=== PATIENT | female | born 1950 | race Caucasian/White ===

== ENCOUNTER 2018-05-18 11:34 | Observation (INO) ==
[2018-05-18 12:45] LABS: BILIRUBIN,URINE SMALL (NEG); CLARITY,URINE CLEAR (CLEAR); GLUCOSE, URINE (UA) NEGATIVE (NEG); OCCULT BLOOD,URINE NEGATIVE (NEG); PROTEIN,URINE NEGATIVE (NEG)
[2018-05-18 12:48] LABS: COLOR,URINE AMBER (Y); URINE SAMPLE TYPE CLEAN CATCH URINE
[2018-05-18 12:55] LABS: BLOOD UREA NITROGEN 6 mg/dL (7-22); SERUM ALBUMIN 2.5 g/dL (3.5-4.8)
[2018-05-18 12:56] LABS: LIPASE 177 IU/L (23-300)
[2018-05-18 13:20] LABS: BASOPHILS # (AUTO) 0.05 10*3/UL; BASOPHILS % (AUTO) 0.9 % (0-1); EOSINOPHILS # (AUTO) 0.17 10*3/UL; EOSINOPHILS % (AUTO) 3.1 % (0-8); Hemoglobin [HGB] 8.5 g/dL (12.0-16.0); LYMPHOCYTES # (AUTO) 1.48 10*3/uL; MEAN CORPUSCULAR HEMOGLOBIN 33.2 PG (27-31); MEAN CORPUSCULAR HGB CONC 32.7 g/dL (33-37); MEAN CORPUSCULAR VOLUME 101.6 FL (81-99); MEAN PLATELET VOLUME 8.7 FL (7.4-12.2); MONOCYTES # (AUTO) 0.63 10*3/UL (0.3-0.8); MONOCYTES % (AUTO) 11.6 % (5-15); RED BLOOD COUNT 2.56 10^6/uL (4.20-5.40)
[2018-05-18 13:29] LABS: PLATELET MORPHOLOGY COMMENT NORMAL MORPHOLOGY (NORM); WBC MORPHOLOGY COMMENT NORMAL MORPHOLOGY (NORM)
[2018-05-18 13:30] LABS: RBC MORPHOLOGY COMMENT SEE COMMENTS (NORM)
[2018-05-18] MEDS ORDERED: PANTOPRAZOLE IV 40 MG VIAL IVP SCH (14:56)
[2018-05-18] MEDS ORDERED: MORPHINE SULFATE 2 MG/1 ML IVP PRN (14:56)
[2018-05-18] MEDS ORDERED: LIDOCAINE W/ SODIUM BICARB 0.5 ML SYR SUBD PRN (14:56)
--- NOTE | 2018-05-18 15:33 | DI ---
CT ABDOMEN SCAN WITH IV CONTRAST, 05/18/2018 1:57 PM : Clinical History: Ascites. Previous Exam: None at this facility. Scans are performed from the lower lung bases through the liver and kidneys with IV contrast. 75 mL o f Isovue 300 was injected IV. No oral or rectal contrast was ordered. The lung bases are clear but there is an increased number of vessels with what probably represents ca rdiomegaly. This is suggestive of CHF. There is either pleural thickening or a very small left-sided pleural effusion. The liver is small and there is suggestion of nodularity of the capsule which would indicate cirrhosis. The gallbladder is contracted and contains multiple gallstones in the range of 2 -3 cm in size. No definite evidence of acute cholecystitis is seen. There is splenomegaly without cachorro dence of varices in the left upper quadrant or in the esophagus. There is a large venous channel manohar ing from the region of the right colon and eventually joining the superior mesenteric vein as it cour ses around the right kidney consistent with a varix. Both kidneys are normal in size, shape, position and contour. There is no hydronephrosis or hydroureter. No renal or ureteral calculi are present. Th ere are no abnormal retrocrural or periaortic nodes. There is moderate ascites along with diffuse tip sarca. READIN. Ascites and anasarca. 2. Small nodular liver indicating cirrhosis with splenomegaly. There is a large varix probably arisi ng from the right colon and then joining the superior mesenteric vein CT PELVIS SCAN WITH IV CONTRAST, 05/18/2018 1:57 PM: Clinical History: See above. Previous Exam: None at this facility. Scans are performed from just superior to the umbilicus to the symphysis pubis with IV contrast. This is the same bolus of contrast used for the CT scans of the abdomen. Scans through the lower abdomen and pelvis show ascites. No intra-abdominal or pelvic mass is present . There is no adenopathy. The appendix is not identified with certainty but there is no inflammatory mass either in the area of the cecum or in the right lower quadrant. The small bowel is normal. The i leocecal valve and terminal ileum not identified with certainty. The colon is normal. There are no he rnias. The uterus and both ovaries are atrophic but normal. READIN. Ascites. 2. The cecum, appendix, ileocecal valve, and terminal ileum cannot be identified with certainty pepe use of the ascites and lack of distention of the proximal ascending colon.
[2018-05-18] MEDS ORDERED: Albumin Human Soln 25% 50 GM/200 ML IV.SOLN IV ONE (16:02)
[2018-05-18] MEDS ORDERED: LIDOCAINE HCL 2 % 10 ML JELLY URO-JECT TOPICAL PRN (16:02)
--- NOTE | 2018-05-18 16:58 | PDOC ---
HPI - History of Present Illness Date of Service: 05/08/18 Chief Complaint: abd pain History of Present Illness: This very nice 68-year-old female with a past medical history of alcohol abuse drinking about 15 beers a day and quit 1 month ago diagnosed with hepatic cirrhosis in [place] 1 month ago and has an appointment with a dairy lab technician in [place] on June 06. Tums into the ER because of some abdominal size increase and swelling. It is not painful and on CAT scan and consistent with ascites Past Medical History Medical History: Hepatic cirrhosis diagnosed in [place] previous history of alcohol abuse 15 beers a day Tobacco Use: Current Every Day Smoker In the Past 12 Months, Have Used or Abuse Any of the Following Substance: None Medication / Allergies Home Medications: Home Medications 3 Medication Instructions Recorded Confirmed Type Furosemide 40 mg PO DAILY 05/18/18 05/18/18 History Allergies/Adverse Reactions: Allergies 3 Allergy/AdvReac Type Severity Reaction Status Date / Time morphine Allergy ITCHING Verified 05/18/18 15:32 Review of Systems - Review of Systems All Systems: Reviewed & No Additional Complaints Except as Stated - Respiratory Respiratory: DENIES: Negative System Review, Cough, Sputum, Dyspnea At Rest, Dyspnea with Exertion, Pleuritic Pain, Hemoptysis, Wheezing, Other, See HPI - Cardiovascular Cardiovascular: DENIES: Negative System Review, Chest Pain, Edema, Syncope, Palpitations, Orthopnea, Paroxysmal Nocturnal Dyspnea, Other, See HPI - Gastrointestinal Gastrointestinal / Abdominal: REPORTS: Nausea, Bloating. DENIES: Abdominal Pain , Bloody Stool, Heartburn, Regurgitation - Neurological Neurologic: DENIES: Negative System Review, Headache, Numbness/Paresthesia, Tremors, Weakness, Seizures, Head Trauma, LOC, Dizziness, Confusion, Memory Loss , Difficulty Walking, Incoordination, Other, See HPI Exam - Vitals Vital Signs: Vital Signs Temperature 97.6 F Temperature Source Tympanic Pulse Rate [Pulse Oximeter] 82 Respiratory Rate 20 Blood Pressure [Left Arm] 115/62 Pulse Ox 97 Oxygen Delivery Method Room Air Height 5 ft 4 in Weight 177 lb 1.6 oz - General General Appearance: No Acute Distress, Cooperative - Head Head Exam: Normal Inspection, Normocephalic, Atraumatic - Eye Eye Exam: POSITIVE: Normal Appearance, PERRL, EOMI, No Scleral Icterus - Respiratory Respiratory Exam: POSITIVE: Clear to Auscultation - Bilaterally, Breathing Non Labored, Normal To Percussion, Normal to Percussion and Palpation - Cardiovascular Cardiovascular Exam: POSITIVE: RRR, No Murmur, No Clicks, No Gallops, No Rubs, PMI Non-Displaced - GI/Abdominal GI/Abdominal Exam: POSITIVE: Hypoactive Bowel Sounds, Positive for Ascites. NEGATIVE: Rebound - Extremities Extremities Exam: POSITIVE: No Clubbing Present, No Edema Present, No Cyanosis Present Results - Labs CBC and BMP: 05/18/18 12:33 05/18/18 12:33 Assessment and Plan - Patient Problems (1) Ascites due to alcoholic cirrhosis Current Visit: Yes Status: Acute Comment: We will order coags, start Aldactone and start IV Lasix insert Perez and albumin infusion I have also ordered a CT scan abdomen and pelvis Code(s): K70.31 - Alcoholic cirrhosis of liver with ascites (2) Anemia Current Visit: Yes Status: Acute Comment: Patient has never been seen here so I cannot look back at the hemoglobin Code(s): D64.9 - Anemia, unspecified (3) Abnormal albumin Current Visit: Yes Status: Acute Code(s): R77.0 - Abnormality of albumin (4) Serum albumin decreased Current Visit: Yes Status: Acute Code(s): E88.09 - Other disorders of plasma -protein metabolism, not elsewhere classified (5) Bilirubinemia Current Visit: Yes Status: Acute Code(s): E80.6 - Other disorders of bilirubin metabolism
[2018-05-18] MEDS ORDERED: Spironolactone Tab 25 MG TAB PO SCH (17:00)
[2018-05-18] MEDS ORDERED: FUROSEMIDE 10 MG/1 ML - 4 ML IVP ONE (19:00)
[2018-05-18] MEDS ORDERED: POTASSIUM CHLORIDE 20 MEQ TAB PO SCH (21:00)
[2018-05-18] MEDS ORDERED: Magnesium Sulfate 2gm (Premix) 2 GM/50 ML BAG IV ONE (22:21)
--- NOTE | 2018-05-19 02:54 | PDOC ---
General Adult HPI - General Chief Complaint: Abdomen Pain Stated Complaint: abd distension Date Seen by Provider: 05/18/18 Time Seen by Provider: 12:45 Source: POSITIVE: Patient, Other (Sister) Exam Limitations: POSITIVE: No limitations Nurse's Notes Reviewed & Considered: Yes - History of Present Illness Initial Comment: The patient is a 68-year-old female. She is brought to the emergency room by her sister. Patient states that she has had some "abdominal swelling" since January. She states that over the last couple days her swelling is increased and has become quite uncomfortable. She has a past history of alcohol abuse and states that she was drinking about 15 beers per day up until about a month ago. She states she's not had any alcohol since. She states she was seen for similar symptoms in [place] approximately one month ago but she states her abdominal swelling was not nearly as prominent or uncomfortable as it is presently. She states that she was started on Lasix during that visit. She states she was diagnosed with hepatic cirrhosis. She states she hasn't appointment with a physician pediatrician in [place] on 06 June. Have you received a tetanus shot in the past 10 years?: Unknown Body Location Affected: REPORTS: Abdomen Timing: REPORTS: Gradual, Getting Worse Duration: >24 hours (Progressive abdominal swelling for 4 months) Quality: REPORTS: Fullness, Pressure Context: REPORTS: Other (As above) Modifying Factors: improves with: Nothing Similar Symptoms Previously: Yes (as above) Recent Care Received: REPORTS: Recently Seen, Treated by MD (As above) Any Prior Injuries Related to Current Complaint?: No - Patient Home Medications Home Medications: Home Medications Furosemide 40 mg PO DAILY 05/18/18 - Patient Allergies Allergies/Adverse Reactions: Allergies 3 Allergy/AdvReac Type Severity Reaction Status Date / Time morphine Allergy ITCHING Verified 05/18/18 15:32 Past Medical History - heen HEENT History: Denies History Cardiovascular History: Denies History Respiratory History: Denies History Gastrointestinal History: Other (please comment) Additional Gastrointestinal History: cirrhosis Genitourinary History: Denies History Endocrine History: Denies History Musculoskeletal History: Denies History Prosthesis or Implant: No Neurological History: Denies History Blood Disorders: Denies History Psychiatric History: Denies History History of Sexually Transmitted Diseases: No Female Reproductive History: Denies History LMP: years Obstetrical History: Denies History Cancer History: Denies History In Past Year Been Physically Harmed or Verbally Threatened: No History of MDRO: No History of Other Communicable Diseases: No Tobacco Use: Current Every Day Smoker In the Past 12 Months, Have Used or Abuse Any Substance: None Past Medical History Reviewed: Reviewed - No Changes ROS - Limitations ROS Limitations: No Limitations Constitution: REPORTS: Weakness, Other (Fatigue) Cardiovascular: REPORTS: Denies Cardiac Symptoms Respiratory: REPORTS: Denies Resp Symptoms Neurological: REPORTS: Denies Neuro Symptoms Gastrointestinal: REPORTS: Abdominal Pain (Abdominal distention and swelling) Endocrine: REPORTS: Fatigue Musculoskeletal: REPORTS: Denies MS Symptoms Genitourinary: REPORTS: Denies Symptoms Eyes: REPORTS: Denies Symptoms ENT: REPORTS: Denies Symptoms Skin: REPORTS: Other (Jaundice and icterus) Lympathic: REPORTS: Denies Lympathic Symptoms Immunologic: POSITIVE: Denies Symptoms Psychiatric: POSITIVE: Denies Psych Symptoms General Adult Exam - General Appearance General Appearance: POSITIVE: Alert, Cooperative, No Acute Distress, No Evidence of Trauma - HEENT HEENT: POSITIVE: Head Inspection Nml, Eyes Inspection Nml, Ears Inspection Nml, Nose Inspection Nml, Oral/Dental Inspect. Nml, Pharynx Inspect. Nml, PERRL, EOMI - Pupils Pupil Size: 3 mm: Bilateral (PERRLA) - Neck Neck: POSITIVE: Normal Inspection, Thyroid Normal - Respiratory Respiratory: POSITIVE: No Respiratory Distress, Breath Sounds Normal, Chest Non- Tender - Cardiovascular Cardiovascular: POSITIVE: Regular Rate & Rhythm, No Murmur, No Gallop, PMI Normal Peripheral Pulses: Radial (R): 2+, Radial (L): 2+ - Abdomen Abdomen: Soft: (All Quadrants), Normal Bowel Sounds: (All Quadrants), No Splenomegaly: (All Quadrants), No Hepatomegaly: (All Quadrants), No Guarding: ( All Quadrants), No Rebound: (All Quadrants), No Palpable Pulse: (All Quadrants) , No Palpabale Mass: (All Quadrants), No Rigidity: (All Quadrants), Tenderness Noted: (All Quadrants), Distention: (All Quadrants) Additional Abdominal Details: Abdominal examination shows bowel sounds to be active. Patient does have ascites in the abdomen is distended and mildly tender diffusely. No masses, organomegaly or rebound. - Back Back: POSITIVE: Normal Inspection - Skin Skin: POSITIVE: Other (Jaundice) - Extremities Extremity: Non-Tender: (All Extremities), Normal ROM: (All Extremities), Normal Inspection: (All Extremities), Edema / Swelling: (RLE), (LLE) - Neurological / Psychological Neurological: POSITIVE: Affect Apporpriate, Oriented X3, lighting director Normal As Tested, Motor Normal, Sensation Normal Images - Complete Complete: 1 - Abdominal distention 2 - Pedal edema General Adult Progress - Results Reviewed by me Xrays/CTs/US Reviewed by me: Yes Discussed with Radiologist: Yes Radiology Findings: Ascites; liver small and nodular compatible with his cirrhosis. Lab Results:: Laboratory Results 3 05/18/18 05/18/18 05/18/18 12:23 12:33 12:33 WBC 5.44 RBC 2.56 L Hgb 8.5 L Hct 26.0 L MCV 101.6 H MCH 33.2 H MCHC 32.7 L RDW Std Deviation 73.2 H RDW Coeff of Raoul 20.8 H Plt Count 36 L MPV 8.7 Immature Gran % (Auto) 0.2 Neut % (Auto) 57.0 Lymph % (Auto) 27.2 Conway % (Auto) 11.6 Eos % (Auto) 3.1 Baso % (Auto) 0.9 Immature Gran # (Auto) 0.01 Neut # (Auto) 3.10 Lymph # (Auto) 1.48 Conway # (Auto) 0.63 Eos # (Auto) 0.17 Baso # (Auto) 0.05 WBC Morphology Comment Normal morphology Plt Morphology Comment Normal morphology RBC Morph Comment See comments Sodium 129 L Potassium 3.2 L Chloride 102 Carbon Dioxide 25 Anion Gap 2 L BUN 6 L Creatinine 0.5 Estimated GFR > 60 BUN/Creatinine Ratio 12.00 Glucose 100 Calculated Osmolality 265.0 L Calcium 7.5 L Magnesium 1.5 L Total Bilirubin 7.5 H AST 51 H ALT 42 Alkaline Phosphatase 144 H Ammonia Total Protein 8.0 Albumin 2.5 L Globulin 5.5 H Albumin/Globulin Ratio 0.40 L Amylase 87 Lipase 177 Ur Collection Type Urine Color Urine Clarity Urine pH Ur Specific [place] Urine Protein Urine Glucose (UA) Urine Ketones Urine Occult Blood Urine Nitrate Urine Bilirubin Urine Urobilinogen Ur Leukocyte Esterase Ur Culture Indicated? Serum Alcohol 3 05/18/18 05/18/18 05/18/18 12:33 12:39 13:00 WBC RBC Hgb Hct MCV MCH MCHC RDW Std Deviation RDW Coeff of Raoul Plt Count MPV Immature Gran % (Auto) Neut % (Auto) Lymph % (Auto) Conway % (Auto) Eos % (Auto) Baso % (Auto) Immature Gran # (Auto) Neut # (Auto) Lymph # (Auto) Conway # (Auto) Eos # (Auto) Baso # (Auto) WBC Morphology Comment Plt Morphology Comment RBC Morph Comment Sodium Potassium Chloride Carbon Dioxide Anion Gap BUN Creatinine Estimated GFR BUN/Creatinine Ratio Glucose Calculated Osmolality Calcium Magnesium Total Bilirubin AST ALT Alkaline Phosphatase Ammonia < 9 L Total Protein Albumin Globulin Albumin/Globulin Ratio Amylase Lipase Ur Collection Type Clean catch urine Urine Color Anabel A Urine Clarity Clear Urine pH 6.0 Ur Specific [place] <=1.005 Urine Protein Negative Urine Glucose (UA) Negative Urine Ketones Negative Urine Occult Blood Negative Urine Nitrate Negative Urine Bilirubin Small Urine Urobilinogen 1.0 Ur Leukocyte Esterase Negative Ur Culture Indicated? Culture not set Serum Alcohol < 10 CBC and BMP: 05/18/18 12:33 05/18/18 12:33 - Patient's Progress Pain Medication Addressed: POSITIVE: Not Applicable School/Work Release Addressed: POSITIVE: Not Applicable Re-Examine Time: 13:55 Re-Examine Comment: Diagnosis of hepatic cirrhosis and anasarca discussed with patient. Patient also has anemia and hypoproteinemia and a low platelet count. Hyperbilirubinemia. Status: POSITIVE: Unchanged, Re-Examined Antibiotics Given: No - Consult Consult (If Yes, Name of Consulting MD & Time Called): Yes (Dr. Mcdonald, hospitalist, [id number]) Consulting MD will see pt:: POSITIVE: [facility] [place] Admit Counseled: POSITIVE: Patient, Family (Sister), RE: Lab Results, RE: Radiology Results, RE: DX, RE: Need for F/U Patient Care Time - Estimated PCT Patient Care Time (In Minutes): 50 Vital Signs - Recent Vital Signs Vital Signs: Vital Signs (Last 8 hours) Temp Pulse Resp BP Pulse Ox 05/19/18 00:28 98.5 F 100 20 112/62 93 05/18/18 19:16 97.9 F 88 21 111/60 95 - VS Reviewed Vital Signs Reviewed: Yes Discharge Clinical Impression: Ascites, Hepatic cirrhosis, Anemia, Thrombocytopenia, Hypoproteinemia, Hyperbilirubinemia Discharge Disposition: Admit to Inpatient Condition: Fair Date Decision to Admit to Inpatient: 05/19/18 Time Decision to Admit to Inpatient: 13:55
[2018-05-19 04:57] LABS: BASOPHILS # (AUTO) 0.03 10*3/UL; BASOPHILS % (AUTO) 0.7 % (0-1); EOSINOPHILS # (AUTO) 0.18 10*3/UL; LYMPHOCYTES # (AUTO) 1.41 10*3/uL; MEAN CORPUSCULAR HEMOGLOBIN 32.9 PG (27-31); MEAN CORPUSCULAR HGB CONC 31.8 g/dL (33-37); MEAN CORPUSCULAR VOLUME 103.3 FL (81-99); MEAN PLATELET VOLUME 9.1 FL (7.4-12.2); MONOCYTES % (AUTO) 13.4 % (5-15); NEUTROPHILS # (AUTO) 2.27 10*3/UL; NEUTROPHILS % (AUTO) 50.5 % (50-80); RED BLOOD COUNT 2.13 10^6/uL (4.20-5.40)
[2018-05-19] MEDS ORDERED: Albumin Human Soln 25% 50 GM/200 ML IV.SOLN IV ONE (05:00)
--- NOTE | 2018-05-19 05:08 | PDOC(PROG) ---
Objective : Data - Labs CBC and BMP: 05/18/18 12:33 05/18/18 12:33 Objective : Exam - General General Appearance: Cooperative - Respiratory Respiratory Exam: Clear to Auscultation - Bilaterally, Breathing Non Labored, Normal To Percussion, Normal to Percussion and Palpation - Cardiovascular Cardiovascular Exam: RRR, No Murmur, No Clicks, No Gallops, No Rubs, PMI Non- Displaced - GI/Abdominal GI/Abdominal Exam: Non Tender, Positive for Ascites Assessment and Plan - Patient Problems (1) Ascites due to alcoholic cirrhosis Current Visit: Yes Status: Acute Comment: I will start Lasix drip this morning we'll more infusion of albumin continue Aldactone we will see if we can get some of her ascitic fluid out with medication patient really does not want to be tapped reviewed CT scan with radiology about 3 L present Code(s): K70.31 - Alcoholic cirrhosis of liver with ascites (2) Anemia Current Visit: Yes Status: Acute Code(s): D64.9 - Anemia, unspecified (3) Abnormal albumin Current Visit: Yes Status: Acute Code(s): R77.0 - Abnormality of albumin (4) Serum albumin decreased Current Visit: Yes Status: Acute Code(s): E88.09 - Other disorders of plasma -protein metabolism, not elsewhere classified (5) Bilirubinemia Current Visit: Yes Status: Acute Code(s): E80.6 - Other disorders of bilirubin metabolism
[2018-05-19 05:10] LABS: BLOOD UREA NITROGEN 5 mg/dL (7-22); SERUM ALBUMIN 2.8 g/dL (3.5-4.8)
[2018-05-19 05:19] LABS: PLATELET MORPHOLOGY COMMENT SEE COMMENTS (NORM); WBC MORPHOLOGY COMMENT NORMAL MORPHOLOGY (NORM)
[2018-05-19 05:20] LABS: RBC MORPHOLOGY COMMENT SEE COMMENTS (NORM)
[2018-05-19] MEDS ORDERED: PHYTONADIONE 10 MG/1 ML AMPULE PO ONE (05:33)
[2018-05-19 06:32] VITALS: BP 106/51; RESP 17; TEMP 98.2; O2SAT 90
[2018-05-19] MEDS ORDERED: FUROSEMIDE 10 MG/1 ML - 4 ML IVP SCH (07:00)
--- NOTE | 2018-05-19 08:16 | DCSUMMARY ---
Hospitalization Summary Hospital Course: Final Discharge Diagnosis: Current Visit Problems Problem Status Onset Code Ascites due to alcoholic cirrhosis Acute K70.31 Anemia Acute D64.9 Abnormal albumin Acute R77.0 Serum albumin decreased Acute E88.09 Bilirubinemia Acute E80.6 Ascites Acute R18.8 Hepatic cirrhosis Acute K74.60 Thrombocytopenia Acute D69.6 Hypoproteinemia Acute E77.8 Diagnostic Data, Laboratory Data, and Procedures of Signifigance: Laboratory Results 05/18/18 05/18/18 05/18/18 Range/Units 12:23 12:33 12:33 WBC 5.44 (4.8-10.8) 10^3/uL RBC 2.56 L (4.20-5.40) 10^6/uL Hgb 8.5 L (12.0-16.0) g/dL Hct 26.0 L (37.0-47.0) % MCV 101.6 H (81-99) FL MCH 33.2 H (27-31) PG MCHC 32.7 L (33-37) g/dL RDW Std Deviation 73.2 H (39-50) fL RDW Coeff of Raoul 20.8 H (11.5-14.5) % Plt Count 36 L (140-350) 10*3/uL MPV 8.7 (7.4-12.2) FL Immature Gran % (Auto) 0.2 (0-5) % Neut % (Auto) 57.0 (50-80) % Lymph % (Auto) 27.2 (10-50) % [place] % (Auto) 11.6 (5-15) % Eos % (Auto) 3.1 (0-8) % Baso % (Auto) 0.9 (0-1) % Immature Gran # (Auto) 0.01 10*3/UL Neut # (Auto) 3.10 10*3/UL Lymph # (Auto) 1.48 10*3/uL [place] # (Auto) 0.63 (0.3-0.8) 10*3/UL Eos # (Auto) 0.17 10*3/UL Baso # (Auto) 0.05 10*3/UL WBC Morphology Comment Normal morphology (NORM) Plt Morphology Comment Normal morphology (NORM) RBC Morph Comment See comments (NORM) PT (9.7-11.4) secs INR (0.00-5.90) N/A Sodium 129 L (135-145) meq/L Potassium 3.2 L (3.8-5.2) meq/L Chloride 102 (98-112) meq/L Carbon Dioxide 25 (23-33) meq/L Anion Gap 2 L (5-20) BUN 6 L (7-22) mg/dL Creatinine 0.5 (0.50-1.20) mg/dL Estimated GFR > 60 (>60 ml/min/1.73m(2)) BUN/Creatinine Ratio 12.00 (6-20) Glucose 100 (78-110) mg/dL Calculated Osmolality 265.0 L (267-292) mOsm/kg Calcium 7.5 L (8.7-10.7) mg/dL Magnesium 1.5 L (1.6-2.4) mg/dL Total Bilirubin 7.5 H (0.3-1.2) mg/dL AST 51 H (8-39) IU/L ALT 42 (9-52) IU/L Alkaline Phosphatase 144 H (38-126) IU/L Ammonia (9.0-33.0) UMOL/L Total Protein 8.0 (6.1-8.0) g/dL Albumin 2.5 L (3.5-4.8) g/dL Globulin 5.5 H (2.50-4.10) g/dL Albumin/Globulin Ratio 0.40 L (1.3-2.0) mg/g Amylase 87 (30-110) U/L Lipase 177 (23-300) IU/L Ur Collection Type Urine Color (Y) Urine Clarity (CLEAR) Urine pH (5.0-8.5) Ur Specific [place] (1.005-1.030) Urine Protein (NEG) mg/dl Urine Glucose (UA) (NEG) mg/dL Urine Ketones (NEG) Urine Occult Blood (NEG) Urine Nitrate (NEG) Urine Bilirubin (NEG) Urine Urobilinogen (0.2) EU/dL Ur Leukocyte Esterase (NEG) Ur Culture Indicated? Serum Alcohol (0-10) mg/dL Blood Type Antibody Screen 05/18/18 05/18/18 05/18/18 Range/Units 12:33 12:39 13:00 WBC (4.8-10.8) 10^3/uL RBC (4.20-5.40) 10^6/uL Hgb (12.0-16.0) g/dL Hct (37.0-47.0) % MCV (81-99) FL MCH (27-31) PG MCHC (33-37) g/dL RDW Std Deviation (39-50) fL RDW Coeff of Raoul (11.5-14.5) % Plt Count (140-350) 10*3/uL MPV (7.4-12.2) FL Immature Gran % (Auto) (0-5) % Neut % (Auto) (50-80) % Lymph % (Auto) (10-50) % [place] % (Auto) (5-15) % Eos % (Auto) (0-8) % Baso % (Auto) (0-1) % Immature Gran # (Auto) 10*3/UL Neut # (Auto) 10*3/UL Lymph # (Auto) 10*3/uL [place] # (Auto) (0.3-0.8) 10*3/UL Eos # (Auto) 10*3/UL Baso # (Auto) 10*3/UL WBC Morphology Comment (NORM) Plt Morphology Comment (NORM) RBC Morph Comment (NORM) PT (9.7-11.4) secs INR (0.00-5.90) N/A Sodium (135-145) meq/L Potassium (3.8-5.2) meq/L Chloride (98-112) meq/L Carbon Dioxide (23-33) meq/L Anion Gap (5-20) BUN (7-22) mg/dL Creatinine (0.50-1.20) mg/dL Estimated GFR (>60 ml/min/1.73m(2)) BUN/Creatinine Ratio (6-20) Glucose (78-110) mg/dL Calculated Osmolality (267-292) mOsm/kg Calcium (8.7-10.7) mg/dL Magnesium (1.6-2.4) mg/dL Total Bilirubin (0.3-1.2) mg/dL AST (8-39) IU/L ALT (9-52) IU/L Alkaline Phosphatase (38-126) IU/L Ammonia < 9 L (9.0-33.0) UMOL/L Total Protein (6.1-8.0) g/dL Albumin (3.5-4.8) g/dL Globulin (2.50-4.10) g/dL Albumin/Globulin Ratio (1.3-2.0) mg/g Amylase (30-110) U/L Lipase (23-300) IU/L Ur Collection Type Clean catch urine Urine Color Anabel A (Y) Urine Clarity Clear (CLEAR) Urine pH 6.0 (5.0-8.5) Ur Specific [place] <=1.005 (1.005-1.030) Urine Protein Negative (NEG) mg/dl Urine Glucose (UA) Negative (NEG) mg/dL Urine Ketones Negative (NEG) Urine Occult Blood Negative (NEG) Urine Nitrate Negative (NEG) Urine Bilirubin Small (NEG) Urine Urobilinogen 1.0 (0.2) EU/dL Ur Leukocyte Esterase Negative (NEG) Ur Culture Indicated? Culture not set Serum Alcohol < 10 (0-10) mg/dL Blood Type Antibody Screen 05/19/18 05/19/18 05/19/18 Range/Units 04:23 04:23 04:23 WBC 4.49 L (4.8-10.8) 10^3/uL RBC 2.13 L (4.20-5.40) 10^6/uL Hgb 7.0 L (12.0-16.0) g/dL Hct 22.0 L (37.0-47.0) % MCV 103.3 H (81-99) FL MCH 32.9 H (27-31) PG MCHC 31.8 L (33-37) g/dL RDW Std Deviation 73.7 H (39-50) fL RDW Coeff of Raoul 21.1 H (11.5-14.5) % Plt Count 80 L (140-350) 10*3/uL MPV 9.1 (7.4-12.2) FL Immature Gran % (Auto) 0 (0-5) % Neut % (Auto) 50.5 (50-80) % Lymph % (Auto) 31.4 (10-50) % [place] % (Auto) 13.4 (5-15) % Eos % (Auto) 4.0 (0-8) % Baso % (Auto) 0.7 (0-1) % Immature Gran # (Auto) 0 10*3/UL Neut # (Auto) 2.27 10*3/UL Lymph # (Auto) 1.41 10*3/uL [place] # (Auto) 0.60 (0.3-0.8) 10*3/UL Eos # (Auto) 0.18 10*3/UL Baso # (Auto) 0.03 10*3/UL WBC Morphology Comment Normal morphology (NORM) Plt Morphology Comment See comments (NORM) RBC Morph Comment See comments (NORM) PT 18.5 H (9.7-11.4) secs INR 1.79 (0.00-5.90) N/A Sodium 133 L (135-145) meq/L Potassium 3.5 L (3.8-5.2) meq/L Chloride 105 (98-112) meq/L Carbon Dioxide 27 (23-33) meq/L Anion Gap 1 L (5-20) BUN 5 L (7-22) mg/dL Creatinine 0.4 L (0.50-1.20) mg/dL Estimated GFR > 60 (>60 ml/min/1.73m(2)) BUN/Creatinine Ratio 12.50 (6-20) Glucose 104 (78-110) mg/dL Calculated Osmolality 272.0 (267-292) mOsm/kg Calcium 7.9 L (8.7-10.7) mg/dL Magnesium (1.6-2.4) mg/dL Total Bilirubin 6.1 H (0.3-1.2) mg/dL AST 45 H (8-39) IU/L ALT 40 (9-52) IU/L Alkaline Phosphatase 122 (38-126) IU/L Ammonia (9.0-33.0) UMOL/L Total Protein 7.5 (6.1-8.0) g/dL Albumin 2.8 L (3.5-4.8) g/dL Globulin 4.7 H (2.50-4.10) g/dL Albumin/Globulin Ratio 0.50 L (1.3-2.0) mg/g Amylase (30-110) U/L Lipase (23-300) IU/L Ur Collection Type Urine Color (Y) Urine Clarity (CLEAR) Urine pH (5.0-8.5) Ur Specific [place] (1.005-1.030) Urine Protein (NEG) mg/dl Urine Glucose (UA) (NEG) mg/dL Urine Ketones (NEG) Urine Occult Blood (NEG) Urine Nitrate (NEG) Urine Bilirubin (NEG) Urine Urobilinogen (0.2) EU/dL Ur Leukocyte Esterase (NEG) Ur Culture Indicated? Serum Alcohol (0-10) mg/dL Blood Type Antibody Screen 05/19/18 05/19/18 Range/Units 04:23 05:55 WBC (4.8-10.8) 10^3/uL RBC (4.20-5.40) 10^6/uL Hgb (12.0-16.0) g/dL Hct (37.0-47.0) % MCV (81-99) FL MCH (27-31) PG MCHC (33-37) g/dL RDW Std Deviation (39-50) fL RDW Coeff of Raoul (11.5-14.5) % Plt Count (140-350) 10*3/uL MPV (7.4-12.2) FL Immature Gran % (Auto) (0-5) % Neut % (Auto) (50-80) % Lymph % (Auto) (10-50) % [place] % (Auto) (5-15) % Eos % (Auto) (0-8) % Baso % (Auto) (0-1) % Immature Gran # (Auto) 10*3/UL Neut # (Auto) 10*3/UL Lymph # (Auto) 10*3/uL [place] # (Auto) (0.3-0.8) 10*3/UL Eos # (Auto) 10*3/UL Baso # (Auto) 10*3/UL WBC Morphology Comment (NORM) Plt Morphology Comment (NORM) RBC Morph Comment (NORM) PT (9.7-11.4) secs INR (0.00-5.90) N/A Sodium (135-145) meq/L Potassium (3.8-5.2) meq/L Chloride (98-112) meq/L Carbon Dioxide (23-33) meq/L Anion Gap (5-20) BUN (7-22) mg/dL Creatinine (0.50-1.20) mg/dL Estimated GFR (>60 ml/min/1.73m(2)) BUN/Creatinine Ratio (6-20) Glucose (78-110) mg/dL Calculated Osmolality (267-292) mOsm/kg Calcium (8.7-10.7) mg/dL Magnesium 1.9 (1.6-2.4) mg/dL Total Bilirubin (0.3-1.2) mg/dL AST (8-39) IU/L ALT (9-52) IU/L Alkaline Phosphatase (38-126) IU/L Ammonia (9.0-33.0) UMOL/L Total Protein (6.1-8.0) g/dL Albumin (3.5-4.8) g/dL Globulin (2.50-4.10) g/dL Albumin/Globulin Ratio (1.3-2.0) mg/g Amylase (30-110) U/L Lipase (23-300) IU/L Ur Collection Type Urine Color (Y) Urine Clarity (CLEAR) Urine pH (5.0-8.5) Ur Specific [place] (1.005-1.030) Urine Protein (NEG) mg/dl Urine Glucose (UA) (NEG) mg/dL Urine Ketones (NEG) Urine Occult Blood (NEG) Urine Nitrate (NEG) Urine Bilirubin (NEG) Urine Urobilinogen (0.2) EU/dL Ur Leukocyte Esterase (NEG) Ur Culture Indicated? Serum Alcohol (0-10) mg/dL Blood Type O NEGATIVE Antibody Screen Negative History and Physical pertinent to Admission: Course of Hospitalization: This is a very nice 68-year-old female with past medical history of alcohol abuse stopped drinking 1 month ago. She [place] [facility] [place] was given Lasix and discharged an [facility] was [facility] for [facility]. Presents to the ER and [facility] [place] with a some abdominal tightness that she describes it CT scan and physical exam revealed the ascites and anasarca. Albumin was close to 0. She was given an albumin infusion Lasix and Aldactone. Perez was inserted for accurate output. INR 1.97 she has a child Osborn classification C with 11 points which gives her 45% survival at one year and a meld score of 22. I discussed the case with Dr. Samir Quiroz steam tender and Dr. Crowe which graciously accepted the patient for further evaluation and workup for possible EGD to look for varices, paracenteses possible TIPS procedure or shot and further management of her disease not having interventional radiology and GI here patient will be transferred [place] [facility] [place] I did speak with the patient which agrees as well and nursing. Her hemoglobin today is 7 she is hemodynamically stable and the ER physician is aware of this as well no transfusion initiated here. Denies chest pain or shortness of breath. Also she was given 2 g of magnesium, because it was 41.5 her potassium was also replaced and albumin infusion. On the date of discharge, the patient was examined: Gen.: [No acute distress, alert, nontoxic] Heart: [Regular rate and rhythm, no murmurs, clicks, gallops, or rubs] Lungs: [Clear to auscultation bilaterally, breathing is nonlabored] Abdomen/GI: Positive for cyanosis and anasarca Musculoskeletal/extremities: [No clubbing, cyanosis, positive for generalized edema] Vitals reviewed and are listed below Vital Signs (24 hrs) Temp Pulse Resp BP Pulse Ox 05/19/18 06:31 98.2 F 95 17 106/51 90 05/19/18 04:39 98.9 F 103 H 20 102/60 91 05/19/18 00:28 98.5 F 100 20 112/62 93 05/18/18 19:16 97.9 F 88 21 111/60 95 05/18/18 17:00 97.5 F 88 20 117/65 95 05/18/18 15:36 97.6 F 82 20 115/62 05/18/18 15:06 82 20 05/18/18 14:56 97 05/18/18 12:03 97.2 F 97 18 131/61 95 Assessment and Plan: 1. As per discharge assessments above 2. Disposition: 3. Condition on discharge, stable and improved. 4. Diet: regular diet 5. Activities: resume normal activities 6. Follow-Up: 1. [PCP] 2. 7. Medications at the Time of Discharge: Home Medications 3 Medication Instructions Recorded Confirmed Type Furosemide 40 mg PO DAILY 05/18/18 05/18/18 History Intake and Output (24hr x 4 totals) 05/16/18 05/17/18 05/18/18 05/19/18 11:59 11:59 11:59 11:59 Intake Total 1520 / 1520 Output Total 2125 / 2125 Balance -605 / -605 8. Time, care, counseling and coordination of care for this discharge is greater than 30 minutes. Exam - Vitals Vital Signs: Vital Signs Temperature 98.2 F Temperature Source Temporal Artery Scan Pulse Rate [Pulse Oximeter] 95 Respiratory Rate 17 Blood Pressure [Left Arm] 106/51 Pulse Ox 90 Oxygen Delivery Method Room Air Height 5 ft 4 in Weight 177 lb 1.6 oz Patient Problems - Patient Problem List (1) Ascites due to alcoholic cirrhosis Current Visit: Yes Status: Acute Code(s): K70.31 - Alcoholic cirrhosis of liver with ascites Category: Medical (2) Anemia Current Visit: Yes Status: Acute Code(s): D64.9 - Anemia, unspecified Category: Medical (3) Abnormal albumin Current Visit: Yes Status: Acute Code(s): R77.0 - Abnormality of albumin Category: Medical (4) Serum albumin decreased Current Visit: Yes Status: Acute Code(s): E88.09 - Other disorders of plasma -protein metabolism, not elsewhere classified Category: Medical (5) Bilirubinemia Current Visit: Yes Status: Acute Code(s): E80.6 - Other disorders of bilirubin metabolism Category: Medical
== END 2018-05-19 08:36 | disposition short-term general hospital (02) ==
LOC: ER 11:34 → MED/SURG 11:34
PROVIDERS: ADMIT Internal Medicine; ATTEND Internal Medicine

== ENCOUNTER 2018-07-21 14:10 | Inpatient (IN) ==
[2018-07-21] MEDS ORDERED: ONDANSETRON 4 MG/2 ML VIAL IVP ONE (14:20)
[2018-07-21] MEDS ORDERED: Sodium Chloride 0.9% 1,000 ML PRIMARY IV ONE (14:20)
--- NOTE | 2018-07-21 14:23 | PDOC ---
Altered Mental Status HPI - General Chief Complaint: Altered Mental Status Stated Complaint: MENTAL STATUS CHANGES Date Seen by Provider: 07/21/18 Time Seen by Provider: 14:10 Source: POSITIVE: Patient Exam Limitations: POSITIVE: Clinical condition Nurse's Notes Reviewed & Considered: Yes - History of Present Illness Initial Comments: This is a well-developed, well-nourished, jaundiced, 68-year-old female with an altered mental status. In via EMS when she was found wandering in the hallway of the [facility] where she lives noted and defecating in the hallway. Last known normal is uncertain and appears to be days. Patient answers all questions the same with may be and continues to give numbers as answers. No lateralizing signs are noted. Further review of systems is unavailable because the patient's altered mental status. Patient is a known alcoholic with history of heavy alcohol consumption. Body Location Affected: REPORTS: Head Timing: REPORTS: Unknown Duration: Unknown Severity: Severe Quality: DENIES: Aching, Burning, Cramping, Dullness, Fullness, "Pain", Sharpness, Stabbing, Throbbing, Tenderness, Itching, Pressure, Other Character of AMS: REPORTS: Disoriented, Confused Context: REPORTS: Other (Found wandering naked and defecating in the hallway of the [facility] home, defecating in the hallway, and giving nonsensical verbal responses.) FSBS ACCOUNT DEVELOPMENT SPECIALIST (Result in comment): No New Medications (if yes, list): No Patient Normals: REPORTS: Alert, Oriented x3 Similar Symptoms Previously: No Recent Care Received: REPORTS: Denies Any Prior Injuries Related to Current Complaint?: No - Patient Home Medications Home Medications: Home Medications pantoprazole 40 mg tablet,delayed release 40 mg PO QDAY #90 tab 06/09/18 pentoxifylline ER 400 mg tablet,extended release 400 mg PO BID #60 tab 06/09/18 potassium chloride ER 20 mEq tablet,extended release 20 meq PO BID #60 tab 06/09/18 propranolol 10 mg tablet 10 mg PO TID #90 tab 06/09/18 sulfamethoxazole 800 mg-trimethoprim 160 mg tablet 1 tab PO QDAY #30 tab 06/09/18 furosemide 20 mg tablet 60 mg PO QDAY #90 tab 07/19/18 magnesium L-lactate ER 84 mg tablet,extended release 84 mg PO BID #180 tab 07/19/18 spironolactone 50 mg tablet 150 mg PO QDAY #90 tab 07/19/18 - Patient Allergies Allergies/Adverse Reactions: Allergies Allergy/AdvReac Type Severity Reaction Status Date / Time morphine Allergy ITCHING Verified 07/21/18 14:20 Past Medical History - heen HEENT History: Denies History Cardiovascular History: Denies History Respiratory History: Denies History Gastrointestinal History: Other (please comment) Additional Gastrointestinal History: cirrhosis Genitourinary History: Denies History Endocrine History: Denies History Musculoskeletal History: Denies History Prosthesis or Implant: No Neurological History: Denies History Blood Disorders: Denies History Psychiatric History: Denies History History of Sexually Transmitted Diseases: No Cancer History: Denies History History of MDRO: No History of Other Communicable Diseases: No In the Past 12 Months, Have Used or Abuse Any Substance: None ROS - Limitations ROS Limitations: Clinical Condition (Patient is altered and able only to respond with nonsensical verbiage and numbers.) Altered Mental Physical Exam - General Appearance General Appearance: POSITIVE: No Acute Distress, No Evidence of Trauma - HEENT HEENT: POSITIVE: Head Inspection Nml, Ears Inspection Nml, Nose Inspection Nml, Oral/Dental Inspect. Nml, Pharynx Inspect. Nml, PERRL, EOMI, Scleral Icterus - Pupil Size Pupil Size: 3 mm: Bilateral - Neuro/Psych Neurological: POSITIVE: Confusion Cranial Nerves: POSITIVE: Dysarthria Cerebellar: POSITIVE: Abnormal Romberg, Abnormal Finger To Nose Peripheral Exam: POSITIVE: No Motor Deficits, No Sensory Deficits, Reflexes Normal Reflexes: Patellar (R): 4+, Patellar (L): 4+, Radial (R): 4+, Radial (L): 4+ - Neck Neck: POSITIVE: Supple, Non Tender - Respiratory Respiratory: POSITIVE: No Respiratory Distress, Breath Sounds Normal - Cardiovascular CVS: POSITIVE: Regular Rate and Rhythm, Heart Sounds Normal Peripheral Pulses: Radial (R): 4+ - Abdomen Abdomen: Soft: (All Quadrants), Normal Bowel Sounds: (All Quadrants), Denies Tenderness: (All Quadrants), No Splenomegaly: (All Quadrants), No Hepatomegaly: (All Quadrants), No Guarding: (All Quadrants), No Rebound: (All Quadrants), No Palpable Pulse: (All Quadrants), No Palpabale Mass: (All Quadrants), No Distention: (All Quadrants), No Rigidity: (All Quadrants) - Skin Skin: POSITIVE: No Rash, Warm, Dry, Other (Jaundice) - Extremities Extremity: Non-Tender: (All Extremities), Normal ROM: (All Extremities), Normal Inspection: (All Extremities), Pelvis Stable: (All Extremities) Altered Mental Status - Results Reviewed By Me Xrays/CTs/US Reviewed: Yes Discussed with Radiologist: Yes Lab Results Reviewed by Me: Yes CBC and BMP: 07/21/18 14:28 07/21/18 14:28 Lab Results:: Laboratory Results 07/21/18 07/21/18 07/21/18 14:28 14:28 14:28 WBC 3.22 L RBC 2.91 L Hgb 10.1 L Hct 31.0 L MCV 106.5 H MCH 34.7 H MCHC 32.6 L RDW Std Deviation 64.3 H RDW Coeff of Raoul 17.9 H Plt Count 43 L MPV 8.7 Neutrophils % (Manual) 46 L Band Neutrophils % 0 Lymphocytes % (Manual) 39 Monocytes % (Manual) 12 Eosinophils % (Manual) 2 Basophils % (Manual) 1 Metamyelocytes % Not Reportable Myelocytes % Not Reportable Promyelocytes % Not Reportable Blast Cells Not Reportable WBC Morphology Comment Normal morphology Plt Morphology Comment Normal morphology RBC Morph Comment See comments Sodium 138 Potassium 4.7 Chloride 107 Carbon Dioxide 21 L Anion Gap 10 BUN 11 Creatinine 0.6 Estimated GFR > 60 BUN/Creatinine Ratio 18.33 Glucose 106 Calculated Osmolality 284.0 Lactic Acid Calcium 8.2 L Magnesium 1.7 Total Bilirubin 7.2 H AST 51 H ALT 39 Alkaline Phosphatase 185 H Ammonia 53 H C-Reactive Protein 0.5 NT-Pro-B Natriuret Pep 104 Total Protein 9.1 H Albumin 3.3 L Globulin 5.8 H Albumin/Globulin Ratio 0.50 L Amylase 153 H Lipase 497 H TSH Free T4 Salicylates < 1.0 Acetaminophen < 10.0 Serum Alcohol < 10 07/21/18 07/21/18 14:28 14:28 WBC RBC Hgb Hct MCV MCH MCHC RDW Std Deviation RDW Coeff of Raoul Plt Count MPV Neutrophils % (Manual) Band Neutrophils % Lymphocytes % (Manual) Monocytes % (Manual) Eosinophils % (Manual) Basophils % (Manual) Metamyelocytes % Myelocytes % Promyelocytes % Blast Cells WBC Morphology Comment Plt Morphology Comment RBC Morph Comment Sodium Potassium Chloride Carbon Dioxide Anion Gap BUN Creatinine Estimated GFR BUN/Creatinine Ratio Glucose Calculated Osmolality Lactic Acid 2.0 Calcium Magnesium Total Bilirubin AST ALT Alkaline Phosphatase Ammonia C-Reactive Protein NT-Pro-B Natriuret Pep Total Protein Albumin Globulin Albumin/Globulin Ratio Amylase Lipase TSH 3.42 Free T4 1.65 Salicylates Acetaminophen Serum Alcohol - Patient's Progress Pain Medication Addressed: POSITIVE: Not Applicable Re-Examine Time:: 15:22 Status: POSITIVE: Improved MDM / ED Course: Patient was evaluated, an IV started, blood drawn and sent to the lab for studies, CT examination of her head as well as chest x-ray were obtained. Findings: CT scan of her head shows no acute intracranial abnormalities. Chest x-ray shows no acute cardiopulmonary decompensation. CBC shows pancytopenia with white count of 3.22, hemoglobin at 10.1, hematocrit of 31.0, and platelets of 43. CMP shows a CO2 of 21, calcium of 8.2, total bilirubin of 7.2, AST of 51, alkaline phosphatase 185. Ammonia is elevated at 53. CRP is 0.5. BNP is 104. TSH is 2.42 and a free T4 1 0.65. Magnesium is 1.7, amylase 153, lipase of 497. Salicylates are less than 1.0, Tylenol less than 10.0, blood alcohol less than 10. Assessment: Hepatic encephalopathy with jaundice. Plan: Patient is being admitted. Antibiotics Given: No - Consult Consult (If Yes, Name of Consulting MD & Time Called): Yes (Dr. Talbert, 1525hrs) Consulting MD will see pt:: POSITIVE: [facility] [place] Admit Counseled: POSITIVE: Patient, RE: Lab Results, RE: Radiology Results, RE: DX, RE: Need for F/U - CAP/CVA/Syncope CAP: POSITIVE: Chest X-ray Patient Care Time - Estimated PCT Patient Care Time (In Minutes): 45 Vital Signs - Recent Vital Signs Vital Signs: Vital Signs (Last 8 hours) Temp Pulse Resp BP Pulse Ox 07/21/18 14:14 96.6 F L 77 16 120/51 98 - VS Reviewed Vital Signs Reviewed: Yes Discharge Clinical Impression: Hepatic encephalopathy, Jaundice, Pancytopenia, Liver failure Discharge Disposition: Admit to Inpatient Condition: Stable Follow Up With: SENG SAPP [Primary Care Provider] - Date Decision to Admit to Inpatient: 07/21/18 Time Decision to Admit to Inpatient: 15:23
[2018-07-21 14:36] LABS: Hemoglobin [HGB] 10.1 g/dL (12.0-16.0); MEAN CORPUSCULAR HEMOGLOBIN 34.7 PG (27-31); MEAN CORPUSCULAR HGB CONC 32.6 g/dL (33-37); MEAN CORPUSCULAR VOLUME 106.5 FL (81-99); MEAN PLATELET VOLUME 8.7 FL (7.4-12.2); RED BLOOD COUNT 2.91 10^6/uL (4.20-5.40)
[2018-07-21 14:51] LABS: BLOOD UREA NITROGEN 11 mg/dL (7-22); BUN/CREATININE RATIO 18.33 (6-20); LIPASE 497 IU/L (23-300); SERUM ALBUMIN 3.3 g/dL (3.5-4.8)
[2018-07-21 14:57] LABS: BAND NEUTROPHILS % 0 % (0-10); NEUTROPHILS % (MANUAL) 46 % (50-80)
[2018-07-21 14:58] LABS: BASOPHILS % (MANUAL) 1 % (0-1); EOSINOPHILS % (MANUAL) 2 % (0-8); MONOCYTES % (MANUAL) 12 % (0-12); PLATELET MORPHOLOGY COMMENT NORMAL MORPHOLOGY (NORM); SALICYLATE < 1.0 mg/dl (0-20); WBC MORPHOLOGY COMMENT NORMAL MORPHOLOGY (NORM)
[2018-07-21 14:59] LABS: RBC MORPHOLOGY COMMENT SEE COMMENTS (NORM)
[2018-07-21] MEDS ORDERED: LACTULOSE 20 GM PACKET PO ONE (15:00)
--- NOTE | 2018-07-21 15:04 | DI ---
CT Head WO Contrast 07/21/2018 2:17 PM History: [facility] [place] ^YES ^[id number] ^AMS Comparison: None. Procedure: Noncontrast axial CT images through the head were obtained at 5 mm with coronal and sagitt al reformations. Bony algorithm axial reconstructions were also provided. Findings: There is no intracranial hemorrhage or extra-axial fluid collection. The ventricles are sy mmetric. There is moderate global atrophy which is within the expected range for age. Decreased att enuation in the periventricular and subcortical white matter is consistent with moderate chronic smal l vessel ischemic changes. There is otherwise normal ndiaye-white differentiation without focal mass o r mass-effect. The visualized portions of the paranasal sinuses and mastoid air cells are clear. Rev iew of the osseous structures demonstrate no depressed calvarial fracture or aggressive osseous lesio n. 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 The facial soft tissues are unremarkable. Atheromatous calcifications are noted in the intracranial vasculature. Impression: 1. No acute intracranial findings. 2. Chronic changes as above.
--- NOTE | 2018-07-21 15:06 | DI ---
XR CXR 1VW 07/21/2018 2:20 PM HISTORY: [facility] [place] [facility] ^ams Comparison: None. Findings: A single portable frontal view of the chest is submitted. Images demonstrate normal aeration without focal consolidation. There is no large pneumothorax or ple ural effusion. The cardiomediastinal silhouette is at the upper limits of normal without significant pulmonary edema. There are atheromatous calcifications in the arch of the tortuous thoracic aorta. Th e osseous structures are grossly unremarkable. Impression: 1. No dense consolidation, pleural effusion, or pneumothorax. 2. Borderline cardiomegaly.
[2018-07-21] MEDS ORDERED: Sodium Chloride 0.9% 1,000 ML, Magnesium Sulfate 2gm (Premix) 50 ML with Multivitamin I... IV ONE ×5 (15:45)
[2018-07-21] MEDS ORDERED: CALCIUM CARBONATE 500 MG (TUMS) CHEWABLE TABLET PO PRN (17:07)
[2018-07-21] MEDS ORDERED: LIDOCAINE W/ SODIUM BICARB 0.5 ML SYR SUBD PRN (17:07)
[2018-07-21] MEDS ORDERED: DOCUSATE 100 MG CAPSULE PO PRN (17:07)
[2018-07-21] MEDS ORDERED: ONDANSETRON 4 MG/2 ML VIAL IVP PRN (17:07)
--- NOTE | 2018-07-21 17:18 | PDOC ---
HPI - History of Present Illness Date of Service: 07/21/18 Time of Service: 17:13 Chief Complaint: Confused History of Present Illness: This is a 68 year old female with alcoholic cirrhosis, child's Osborn class C, meld score of about 20-22, who recently stopped drinking about 2 months ago. She also has known esophageal varices. She has been on outpatient treatment for this and was wandering around the [facility] in [place], [place], and was also apparently defecated in the hallway. The ambulance was called and the patient was brought to the emergency room for evaluation. Upon arrival the patient was somnolent and not very arousable. She had an elevated ammonia level and I spoke with the emergency room physician and they gave her lactulose. A CT scan was negative for any acute bleed. The patient, during her emergency room stay and after lactulose, improved, is alert, disoriented, but alert to person. Her speech is clear and intact and there is no facial droop and there is no evidence of focal findings. Her ammonia was found to be 53. She has never had encephalopathy to my knowledge before. She denied any fevers, chills, chest pain, shortness breath, or abdominal pain. We did look with bedside ultrasound and there does not appear to be a large amount of ascites at all. It is not clear whether she's been drinking but the patient denies it and her blood alcohol was negative in the emergency room. There appeared to be no other exacerbating factors for the patient's presentation. She is not clear if she lives alone or not currently. No family members or friends were available for corroboration of her history. I was able to talk with her sister. The patient just saw her primary provider and apparently the patient was confused and lucid. Past Medical History Medical History: 1. Alcoholic cirrhosis, end-stage, MELD of 21. 2. Alcohol abuse although patient maintained she is abstinent at this time. 3. Esophageal varices. 4. Findings consistent with end-stage liver disease including anemia, macrocytic, thrombocytopenia, jaundice Surgical History: 1. Abdominal surgery with a large scar in the right lower quadrant. 2. Tonsillectomy and adenoidectomy. 3. EGD that showed esophageal varices banded 5 Pertinent Family History: On my review of the medical record, significant for alcohol abuse, and Alzheimer's dementia Past Social History: Drinker. Smoker. She states that she is abstinent at this time from alcohol abuse. She denies having children although I don't know if that's true. She has a sister listed on her contacts in [place]. She lives in [place], [place]. Tobacco Use: Current Every Day Smoker In the Past 12 Months, Have Used or Abuse Any of the Following Substance: None Alcohol Use: Heavy (Although patient states she is abstinent now) Medication / Allergies Home Medications: Home Medications Medication Instructions Recorded Confirmed Type pantoprazole 40 mg tablet,delayed 40 mg PO QDAY #90 tab 06/09/18 07/19/18 Rx release pentoxifylline ER 400 mg 400 mg PO BID #60 tab 06/09/18 07/19/18 Rx tablet,extended release potassium chloride ER 20 mEq 20 meq PO BID #60 tab 06/09/18 07/19/18 Rx tablet,extended release propranolol 10 mg tablet 10 mg PO TID #90 tab 06/09/18 07/19/18 Rx sulfamethoxazole 800 1 tab PO QDAY #30 tab 06/09/18 07/19/18 Rx mg-trimethoprim 160 mg tablet furosemide 20 mg tablet 60 mg PO QDAY #90 tab 07/19/18 07/19/18 Rx magnesium L-lactate ER 84 mg 84 mg PO BID #180 tab 07/19/18 07/19/18 Rx tablet,extended release spironolactone 50 mg tablet 150 mg PO QDAY #90 tab 07/19/18 07/19/18 Rx Allergies/Adverse Reactions: Allergies Allergy/AdvReac Type Severity Reaction Status Date / Time morphine Allergy ITCHING Verified 07/21/18 14:20 Review of Systems - Review of Systems ROS Unobtainable: Due to Mental Status (Due to the patient's hepatic encephalopathy it was very difficult to obtain a review of systems although patient does deny chest pain, shortness breath, nausea or vomiting or abdominal pain.) Exam - Vitals Vital Signs: Vital Signs Temperature 96.6 F Temperature Source Temporal Artery Scan Pulse Rate [Pulse Oximeter 77 Right] Respiratory Rate 16 Blood Pressure [Left Arm] 120/51 Pulse Ox 98 Oxygen Delivery Method Room Air Height 5 ft 3 in Weight 150 lb - General General Appearance: No Acute Distress, Cooperative - Head Head Exam: Normal Inspection, Normocephalic, Atraumatic - Eye Eye Exam: POSITIVE: Scleral Icterus - ENT ENT Exam: POSITIVE: Mucous Membranes Moist - Neck Neck Exam: Normal Inspection, No Tenderness, No Lymphadenopathy, No Thyromegaly, JVP is not Raised - Respiratory Respiratory Exam: POSITIVE: Clear to Auscultation - Bilaterally, Breathing Non Labored, Normal to Percussion and Palpation - Cardiovascular Cardiovascular Exam: POSITIVE: RRR, No Clicks, No Gallops, No Rubs, Systolic Murmur, No JVD - GI/Abdominal GI/Abdominal Exam: POSITIVE: Normal Bowel Sounds, Non Tender, Non Distended, Soft Additional GI/Abdominal Exam Details: I looked at bedside ultrasound. There is no ascites present on my view of ultrasound. This was not a formal ultrasound. - Rectal Rectal Exam: POSITIVE: Deferred - External Exam: POSITIVE: Deferred Exam: POSITIVE: Deferred - Extremities Extremities Exam: POSITIVE: No Cyanosis Present, Clubbing Present, +1 Edema - Back Back Exam: POSITIVE: No CVA Tenderness - Neurological Neurological Exam: POSITIVE: Alert, No Facial Droop, Speech Intact / Clear, Moves All Extremities Equally, Altered (Oriented to person, not to place, time, or situation) Additional Neurological Exam Details: Sometimes inappropriate with her answers. Is time disoriented. Very mild asterixis - Integumentary Integumentary Exam: POSITIVE: Dry, Intact Additional Integumentary Exam Details: changes of vascular insufficiency in her lower extremities. Results - Labs CBC and BMP: 07/21/18 14:28 07/21/18 14:28 Additional Lab Results: Laboratory Results 07/21/18 07/21/18 07/21/18 14:28 14:28 14:28 WBC 3.22 L RBC 2.91 L Hgb 10.1 L Hct 31.0 L MCV 106.5 H MCH 34.7 H MCHC 32.6 L RDW Std Deviation 64.3 H RDW Coeff of Raoul 17.9 H Plt Count 43 L MPV 8.7 Neutrophils % (Manual) 46 L Band Neutrophils % 0 Lymphocytes % (Manual) 39 Monocytes % (Manual) 12 Eosinophils % (Manual) 2 Basophils % (Manual) 1 Metamyelocytes % Not Reportable Myelocytes % Not Reportable Promyelocytes % Not Reportable Blast Cells Not Reportable WBC Morphology Comment Normal morphology Plt Morphology Comment Normal morphology RBC Morph Comment See comments Sodium 138 Potassium 4.7 Chloride 107 Carbon Dioxide 21 L Anion Gap 10 BUN 11 Creatinine 0.6 Estimated GFR > 60 BUN/Creatinine Ratio 18.33 Glucose 106 Calculated Osmolality 284.0 Lactic Acid Calcium 8.2 L Magnesium 1.7 Total Bilirubin 7.2 H AST 51 H ALT 39 Alkaline Phosphatase 185 H Ammonia 53 H C-Reactive Protein 0.5 NT-Pro-B Natriuret Pep 104 Total Protein 9.1 H Albumin 3.3 L Globulin 5.8 H Albumin/Globulin Ratio 0.50 L Amylase 153 H Lipase 497 H TSH Free T4 Salicylates < 1.0 Acetaminophen < 10.0 Serum Alcohol < 10 07/21/18 07/21/18 14:28 14:28 WBC RBC Hgb Hct MCV MCH MCHC RDW Std Deviation RDW Coeff of Raoul Plt Count MPV Neutrophils % (Manual) Band Neutrophils % Lymphocytes % (Manual) Monocytes % (Manual) Eosinophils % (Manual) Basophils % (Manual) Metamyelocytes % Myelocytes % Promyelocytes % Blast Cells WBC Morphology Comment Plt Morphology Comment RBC Morph Comment Sodium Potassium Chloride Carbon Dioxide Anion Gap BUN Creatinine Estimated GFR BUN/Creatinine Ratio Glucose Calculated Osmolality Lactic Acid 2.0 Calcium Magnesium Total Bilirubin AST ALT Alkaline Phosphatase Ammonia C-Reactive Protein NT-Pro-B Natriuret Pep Total Protein Albumin Globulin Albumin/Globulin Ratio Amylase Lipase TSH 3.42 Free T4 1.65 Salicylates Acetaminophen Serum Alcohol I ordered a PT and INR and they're pending. - Imaging Status: Image Reviewed by Me (The chest x-ray was negative on my view for pneumonia. The CT scan of the head was negative for acute bleed.) Assessment and Plan - Patient Problems (1) Hepatic encephalopathy Current Visit: Yes Status: Acute Code(s): K72.90 - Hepatic failure, unspecified without coma (2) Alcoholic cirrhosis of liver Current Visit: Yes Status: Acute Code(s): K70.30 - Alcoholic cirrhosis of liver without ascites Qualifiers: Ascites presence: without ascites Qualified Code(s): K70.30 - Alcoholic cirrhosis of liver without ascites (3) Esophageal varices Current Visit: Yes Status: Acute Code(s): I85.00 - Esophageal varices without bleeding Qualifiers: Esophageal varices type: secondary Esophageal varices bleeding: without bl eeding Qualified Code(s): I85.10 - Secondary esophageal varices without b leeding (4) Tobacco dependence Current Visit: No Status: Chronic Onset Date: 01/09/16 Code(s): F17.200 - Nicotine dependence, unspecified, uncomplicated - Assessment / Plan Additional Assessment/Plan Details: The patient has grade 2 to grade 3 hepatic encephalopathy that responded to lactulose in the emergency room. She still disoriented, and she is being admitted for altered mental status. We'll continue lactulose, recheck labs in the morning including an ammonia level. I'll continue the patient on her home medications. She has a banana bag going right now and I'll continue that. I think she is alert enough that we can advance her diet. Overall, the patient's MELD score is 21. I'll keep the patient on a satellite project site monitor and oxygen saturation monitoring for now. No evidence for ascites so I doubt spontaneous bacterial peritonitis is an issue here. She probably will need some sort of lactulose maintenance but we'll see how she tolerates in terms of her electrolytes. I'm not sure she is oriented enough to truly give CODE STATUS although she did state to me "if my heart stops then that's it, then let it be" I did speak to the patient's sister in [place]. The patient has had variable compliance with medications. The patient has signed a DNR with her primary provider. I will order that. Has sober for 4 to 5 months per her sister's description of her recent history. prognosis poor overall.
[2018-07-21] MEDS: LACTULOSE 20 GM PACKET PO SCH (19:22)
[2018-07-21] MEDS: FUROSEMIDE 20 MG TABLET PO SCH (19:23)
[2018-07-21] MEDS: PANTOPRAZOLE 40 MG TABLET PO SCH (19:23)
[2018-07-21] MEDS: SULFAMETHOXAZOLE/TRIMETHOPRIM 800/160 MG TABLET PO SCH (19:23)
[2018-07-21] MEDS: Spironolactone Tab 50 MG TAB PO SCH (19:23)
[2018-07-21] MEDS: Propranolol Tab 10 MG TAB PO SCH (21:27)
[2018-07-21] MEDS: PENTOXIFYLLINE 400 MG PO SCH (22:17)
[2018-07-22] MEDS: LACTULOSE 20 GM PACKET PO SCH ×3 (00:14→21:02)
[2018-07-22 04:50] LABS: BASOPHILS # (AUTO) 0.05 10*3/UL; BASOPHILS % (AUTO) 1.5 % (0-1); EOSINOPHILS # (AUTO) 0.12 10*3/UL; EOSINOPHILS % (AUTO) 3.6 % (0-8); Hematocrit [HCT] 26.4 % (37.0-47.0); Hemoglobin [HGB] 8.6 g/dL (12.0-16.0); LYMPHOCYTES # (AUTO) 1.37 10*3/uL; MEAN CORPUSCULAR HGB CONC 32.6 g/dL (33-37); MEAN CORPUSCULAR VOLUME 107.3 FL (81-99); MEAN PLATELET VOLUME 9.2 FL (7.4-12.2); MONOCYTES # (AUTO) 0.49 10*3/UL (0.3-0.8); MONOCYTES % (AUTO) 14.5 % (5-15); NEUTROPHILS # (AUTO) 1.33 10*3/UL; NEUTROPHILS % (AUTO) 39.3 % (50-80); RED BLOOD COUNT 2.46 10^6/uL (4.20-5.40)
[2018-07-22 05:02] LABS: BLOOD UREA NITROGEN 10 mg/dL (7-22); BUN/CREATININE RATIO 16.66 (6-20); SERUM ALBUMIN 2.7 g/dL (3.5-4.8)
[2018-07-22 05:09] LABS: PLATELET MORPHOLOGY COMMENT SEE COMMENTS (NORM); RBC MORPHOLOGY COMMENT SEE COMMENTS (NORM); WBC MORPHOLOGY COMMENT NORMAL MORPHOLOGY (NORM)
[2018-07-22] MEDS: PANTOPRAZOLE 40 MG TABLET PO SCH (07:20)
[2018-07-22] MEDS: FUROSEMIDE 20 MG TABLET PO SCH (08:00)
[2018-07-22] MEDS: SULFAMETHOXAZOLE/TRIMETHOPRIM 800/160 MG TABLET PO SCH (08:00)
[2018-07-22] MEDS: Propranolol Tab 10 MG TAB PO SCH ×3 (08:00→21:02)
[2018-07-22] MEDS: POTASSIUM CHLORIDE 20 MEQ TAB PO SCH ×2 (08:01→21:02)
[2018-07-22] MEDS: Spironolactone Tab 50 MG TAB PO SCH (08:01)
[2018-07-22] MEDS: PENTOXIFYLLINE 400 MG PO SCH ×2 (08:14→21:02)
[2018-07-22] MEDS ORDERED: POTASSIUM CHLORIDE 20 MEQ TAB PO ONE (08:59)
--- NOTE | 2018-07-22 10:20 | EKG ---
[address] [place] [address] Measurements Intervals [place] Rate: 75 P: 62 MI: 180 QRS: -33 QRSD: 140 T: 22 QT: 434 QTc: 463 Interpretive Statements SINUS RHYTHM MARKED LEFT AXIS DEVIATION [QRS AXIS < -30] RIGHT BUNDLE BRANCH BLOCK [120+ ms QRS DURATION, UPRIGHT V1, 40+ ms S IN I/aVL/V4/V5/V6] No previous ECG available for comparison Electronically Signed On 07-22-18 10:24:10 MST by Julio Warren MD [email or web address]
[2018-07-22 11:53] VITALS: BP 120/59; RESP 12; TEMP 98.1; O2SAT 98
--- NOTE | 2018-07-22 13:30 | PDOC(PROG) ---
Date of Service: 07/22/18 Time of Service: 10:00 Interval History: no chest pain, no nausea or vomiting. more alert and oriented to place, time, situation. had no memory of yesterday. She is not happy about being here. no alcohol in last 4 months. Objective : Data - Labs CBC and BMP: 07/22/18 04:11 07/22/18 04:11 Additional Lab Results: 07/22/18 07/22/18 07/22/18 04:11 04:11 04:11 PT 17.1 H INR 1.65 Total Bilirubin 6.9 H AST 46 H ALT 40 Alkaline Phosphatase 144 H Ammonia 30 Total Protein 8.0 Albumin 2.7 L Globulin 5.3 H Albumin/Globulin Ratio 0.50 L Objective : Exam - General General Appearance: No Acute Distress Additional General Exam Details: Vital Signs - Last Taken Temperature 98.1 F 07/22/18 11:52 Pulse Rate 78 07/22/18 11:52 Respiratory Rate 12 07/22/18 11:52 Blood Pressure 120/59 07/22/18 11:52 Pulse Ox 98 07/22/18 11:52 - Eye Eye Exam: Scleral Icterus - ENT ENT Exam: Mucous Membranes Moist - Respiratory Respiratory Exam: Clear to Auscultation - Bilaterally, Breathing Non Labored - Cardiovascular Cardiovascular Exam: RRR, No Clicks, No Gallops, No Rubs, Systolic Murmur, No JVD - GI/Abdominal GI/Abdominal Exam: Normal Bowel Sounds, Non Tender, Non Distended, Soft - Extremities Extremities Exam: No Cyanosis Present, Clubbing Present, +1 Edema - Neurological Neurological Exam: Alert, Oriented x 3, Normal Gait, No Facial Droop, Speech Intact / Clear, Moves All Extremities Equally Assessment and Plan - Patient Problems (1) Hepatic encephalopathy Current Visit: Yes Status: Acute Code(s): K72.90 - Hepatic failure, unspecified without coma (2) Alcoholic cirrhosis of liver Current Visit: Yes Status: Chronic Code(s): K70.30 - Alcoholic cirrhosis of liver without ascites Qualifiers: Ascites presence: without ascites Qualified Code(s): K70.30 - Alcoholic cirrhosis of liver without ascites (3) Esophageal varices Current Visit: Yes Status: Acute Code(s): I85.00 - Esophageal varices without bleeding Qualifiers: Esophageal varices type: secondary Esophageal varices bleeding: without bleeding Qualified Code(s): I85.10 - Secondary esophageal varices without bleeding (4) Tobacco dependence Current Visit: Yes Status: Chronic Onset Date: 01/09/16 Code(s): F17.200 - Nicotine dependence, unspecified, uncomplicated - Assessment / Plan Additional Assessment/Plan Details: continue lactulose, but drop dose to BID potassium replacement I had a discussion with the patient, she has really three options in my mind--1) continue medical treatment and live with a family member due to her liver disease to try to get to a point where she might have the option of visiting with a transplant team for an evaluation, 2) consider hospice, or 3) leave against medical advice with a plan in place and do the best we can in a situation where she is not wanting to follow recommendations for her liver disease. She initially stated to me that she wanted to go home but changed her mind and stated she would stay overnight so that we could monitor this encephalopathy 1 more day. I think that is best for her. Hopefully, she'll be able to find a different living situation and living on her own. I told her she cannot drive with her hepatic encephalopathy. My concern and worry with the hepatic encephalopathy in the setting of wax and wane in terms of severity and that she really needs someone to help monitor this and to allow the patient to access the health system should something that happened. I'm worried that the patient can herself or someone else driving if she were to all of a sudden developed a grade 3 and grade 4 hepatic encephalopathy. The patient told me specifically that I am not allowed to call her son to discuss medical issues. She is okay with me calling her sister. Labs in a.m. I sent in a lactulose prescription to [facility], the patient's pharmacy.
[2018-07-23 05:06] LABS: BLOOD UREA NITROGEN 11 mg/dL (7-22); BUN/CREATININE RATIO 13.75 (6-20); SERUM ALBUMIN 2.6 g/dL (3.5-4.8)
[2018-07-23] MEDS ORDERED: MAGNESIUM OXIDE 400 MG TABLET PO SCH (07:00)
[2018-07-23] MEDS: SULFAMETHOXAZOLE/TRIMETHOPRIM 800/160 MG TABLET PO SCH (08:55)
[2018-07-23] MEDS: PANTOPRAZOLE 40 MG TABLET PO SCH (08:55)
[2018-07-23] MEDS: POTASSIUM CHLORIDE 20 MEQ TAB PO SCH ×2 (08:55→20:33)
[2018-07-23] MEDS: Propranolol Tab 10 MG TAB PO SCH ×3 (08:55→20:33)
[2018-07-23] MEDS: LACTULOSE 20 GM PACKET PO SCH ×2 (08:56→20:33)
[2018-07-23] MEDS: Spironolactone Tab 50 MG TAB PO SCH (08:56)
[2018-07-23] MEDS: FUROSEMIDE 20 MG TABLET PO SCH (08:56)
[2018-07-23] MEDS: PENTOXIFYLLINE 400 MG PO SCH ×2 (09:23→20:37)
--- NOTE | 2018-07-23 12:46 | PDOC(PROG) ---
Date of Service: 07/23/18 Time of Service: 09:50 Interval History: patient seen, evaluated earlier. no chest pain, no shortness of breath. no nausea or vomiting. is willing to try to explore living with family. gave permission to speak with her son, Candido, who informed me he may need a day or two to try and organize things to get his mother moved into [place], [place], with him. Objective : Data - Labs CBC and BMP: 07/22/18 04:11 07/23/18 04:35 Objective : Exam - General General Appearance: No Acute Distress, Cooperative Additional General Exam Details: Vital Signs - Last Taken Temperature 97.7 F 07/23/18 11:26 Pulse Rate 70 07/23/18 11:26 Respiratory Rate 18 07/23/18 11:26 Blood Pressure 111/56 07/23/18 11:26 Pulse Ox 93 07/23/18 11:26 - Eye Eye Exam: Scleral Icterus - ENT ENT Exam: Mucous Membranes Moist - Neck Neck Exam: JVP is not Raised - Respiratory Respiratory Exam: Clear to Auscultation - Bilaterally, Breathing Non Labored - Cardiovascular Cardiovascular Exam: RRR, No Murmur, No Clicks, No Gallops, No Rubs, No JVD - GI/Abdominal GI/Abdominal Exam: Normal Bowel Sounds, Non Tender, Non Distended, Soft - Extremities Extremities Exam: No Clubbing Present, No Cyanosis Present, +1 Edema - Neurological Neurological Exam: Alert, No Facial Droop, Speech Intact / Clear, Moves All Extremities Equally Additional Neurological Exam Details: oriented to person, but not to place, somewhat oriented to situation, but grade two hepatic encephalopathy Assessment and Plan - Patient Problems (1) Hepatic encephalopathy Current Visit: Yes Status: Acute Code(s): K72.90 - Hepatic failure, unspecified without coma (2) Alcoholic cirrhosis of liver Current Visit: Yes Status: Chronic Code(s): K70.30 - Alcoholic cirrhosis of liver without ascites Qualifiers: Ascites presence: without ascites Qualified Code(s): K70.30 - Alcoholic cirrhosis of liver without ascites (3) Esophageal varices Current Visit: Yes Status: Acute Code(s): I85.00 - Esophageal varices without bleeding Qualifiers: Esophageal varices type: secondary Esophageal varices bleeding: without bleeding Qualified Code(s): I85.10 - Secondary esophageal varices without bleeding (4) Tobacco dependence Current Visit: Yes Status: Chronic Onset Date: 01/09/16 Code(s): F17.200 - Nicotine dependence, unspecified, uncomplicated - Assessment / Plan Additional Assessment/Plan Details: order PT and OT swing bed evaluation continue lactulose and see if it helps stabilize mental status with hepatic encephalopathy discussed with son, Candido. He seems to be willing to help his mother out. I do not think patient will be capable of living on her own. ammonia level in AM. as often reported in literature, ammonia level not correlating with severity of symptoms, so will keep BID dosing for lactulose for now. replace magnesium
[2018-07-23] MEDS ORDERED: Magnesium Sulfate 4gm (Premix) 4 GM/100 ML BAG IV ONE (12:49)
[2018-07-23] MEDS: MAGNESIUM OXIDE 400 MG TABLET PO SCH (17:24)
[2018-07-24 05:02] LABS: BLOOD UREA NITROGEN 11 mg/dL (7-22); BUN/CREATININE RATIO 15.71 (6-20); SERUM ALBUMIN 2.6 g/dL (3.5-4.8)
[2018-07-24] MEDS: PANTOPRAZOLE 40 MG TABLET PO SCH (07:13)
[2018-07-24] MEDS: MAGNESIUM OXIDE 400 MG TABLET PO SCH ×2 (07:13→17:28)
[2018-07-24] MEDS: Propranolol Tab 10 MG TAB PO SCH ×3 (10:14→21:35)
[2018-07-24] MEDS: Spironolactone Tab 50 MG TAB PO SCH (10:14)
[2018-07-24] MEDS: FUROSEMIDE 20 MG TABLET PO SCH (10:14)
[2018-07-24] MEDS: POTASSIUM CHLORIDE 20 MEQ TAB PO SCH ×2 (10:14→21:34)
[2018-07-24] MEDS: LACTULOSE 20 GM PACKET PO SCH ×2 (10:15→21:34)
[2018-07-24] MEDS: SULFAMETHOXAZOLE/TRIMETHOPRIM 800/160 MG TABLET PO SCH (10:19)
[2018-07-24] MEDS: PENTOXIFYLLINE 400 MG PO SCH ×2 (10:31→21:57)
--- NOTE | 2018-07-24 10:36 | PDOC(PROG) ---
Interval History: Patient feels much better today still icteric her lactulose levels are decreased patient is oriented to place time and person. She was very happy that her son is willing to help her out. Objective : Data - Labs CBC and BMP: 07/22/18 04:11 07/24/18 04:38 Objective : Exam - General General Appearance: Cooperative - Respiratory Respiratory Exam: Clear to Auscultation - Bilaterally, Breathing Non Labored, Normal To Percussion, Normal to Percussion and Palpation - Cardiovascular Cardiovascular Exam: RRR, No Murmur, No Clicks, No Gallops, No Rubs, PMI Non- Displaced - GI/Abdominal GI/Abdominal Exam: Normal Bowel Sounds, Non Tender, Non Distended, Soft, No Masses, No Hepatomegaly, No Splenomegaly, No Organomegaly - Extremities Extremities Exam: No Clubbing Present, No Edema Present, No Cyanosis Present Assessment and Plan - Patient Problems (1) Hepatic encephalopathy Current Visit: Yes Status: Acute Comment: Continue lactulose patient is less confused and oriented to person time and place examined with nursing. According to previous note; he Has Agreed to Help Her Mom and for Her the Most Likely to Live with Him in [place] She Is Very Agreeable and Happy about This Plan Code(s): K72.90 - Hepatic failure, unspecified without coma (2) Alcoholic cirrhosis of liver Current Visit: Yes Status: Chronic Code(s): K70.30 - Alcoholic cirrhosis of liver without ascites Qualifiers: Ascites presence: without ascites Qualified Code(s): K70.30 - Alcoholic cirrhosis of liver without ascites (3) Tobacco dependence Current Visit: Yes Status: Chronic Onset Date: 01/09/16 Code(s): F17.200 - Nicotine dependence, unspecified, uncomplicated (4) Esophageal varices Current Visit: Yes Status: Acute Code(s): I85.00 - Esophageal varices without bleeding Qualifiers: Esophageal varices type: secondary Esophageal varices bleeding: without bleeding Qualified Code(s): I85.10 - Secondary esophageal varices without bleeding
[2018-07-24] MEDS ORDERED: LORazepam 1 MG TABLET PO PRN (22:22)
[2018-07-25 05:28] LABS: BLOOD UREA NITROGEN 15 mg/dL (7-22); BUN/CREATININE RATIO 18.75 (6-20); SERUM ALBUMIN 2.8 g/dL (3.5-4.8)
[2018-07-25 09:50] LABS: BASOPHILS # (AUTO) 0.06 10*3/UL; BASOPHILS % (AUTO) 1.4 % (0-1); EOSINOPHILS # (AUTO) 0.12 10*3/UL; EOSINOPHILS % (AUTO) 2.9 % (0-8); Hemoglobin [HGB] 8.9 g/dL (12.0-16.0); LYMPHOCYTES # (AUTO) 1.83 10*3/uL; MEAN CORPUSCULAR HEMOGLOBIN 34.6 PG (27-31); MEAN CORPUSCULAR HGB CONC 31.8 g/dL (33-37); MEAN CORPUSCULAR VOLUME 108.9 FL (81-99); MEAN PLATELET VOLUME 10.1 FL (7.4-12.2); MONOCYTES # (AUTO) 0.73 10*3/UL (0.3-0.8); MONOCYTES % (AUTO) 17.5 % (5-15); NEUTROPHILS # (AUTO) 1.43 10*3/UL; NEUTROPHILS % (AUTO) 34.3 % (50-80); RED BLOOD COUNT 2.57 10^6/uL (4.20-5.40)
[2018-07-25] MEDS: LACTULOSE 20 GM PACKET PO SCH ×2 (09:58→20:22)
--- NOTE | 2018-07-25 09:58 | PDOC(PROG) ---
Interval History: The patient is obtunded does awaken . With the first command and mild sternal rub. Not oriented Objective : Data - Labs CBC and BMP: 07/22/18 04:11 07/25/18 05:00 Objective : Exam - General General Appearance: No Acute Distress Additional General Exam Details: Lethargic - Respiratory Respiratory Exam: Clear to Auscultation - Bilaterally, Breathing Non Labored, Normal To Percussion, Normal to Percussion and Palpation - Cardiovascular Cardiovascular Exam: RRR, No Murmur, No Clicks, No Gallops, No Rubs, PMI Non- Displaced - GI/Abdominal GI/Abdominal Exam: Normal Bowel Sounds, Non Tender, Non Distended, Soft, No Masses, No Hepatomegaly, No Splenomegaly, No Organomegaly - Extremities Extremities Exam: No Edema Present, No Cyanosis Present - Neurological Neurological Exam: No Facial Droop, Moves All Extremities Equally Assessment and Plan - Patient Problems (1) Hepatic encephalopathy Current Visit: Yes Status: Acute Comment: This is worsening ammonia is 210 despite lactulose and antibiotic. She has ripped out all her IVs does not appear to be in pain IV consult over the phone with Dr. Manuel Gagnon slat basket maker helper machine at [facility] he recommended just supportive care and then nothing else to do at this point even with full therapy this could be the natural regression over her liver cirrhosis. Will check CBC with differential and INR. I attempted to call the son there is no answer I called twice at 9:58 AM Code(s): K72.90 - Hepatic failure, unspecified without coma (2) Alcoholic cirrhosis of liver Current Visit: Yes Status: Chronic Code(s): K70.30 - Alcoholic cirrhosis of liver without ascites Qualifiers: Ascites presence: without ascites Qualified Code(s): K70.30 - Alcoholic cirrhosis of liver without ascites (3) Tobacco dependence Current Visit: Yes Status: Chronic Onset Date: 01/09/16 Code(s): F17.200 - Nicotine dependence, unspecified, uncomplicated (4) Esophageal varices Current Visit: Yes Status: Acute Code(s): I85.00 - Esophageal varices without bleeding Qualifiers: Esophageal varices type: secondary Esophageal varices bleeding: without bleeding Qualified Code(s): I85.10 - Secondary esophageal varices without ble edinbrice
[2018-07-25] MEDS: MAGNESIUM OXIDE 400 MG TABLET PO SCH ×2 (10:11→17:07)
[2018-07-25] MEDS: PANTOPRAZOLE 40 MG TABLET PO SCH (10:11)
[2018-07-25] MEDS: Propranolol Tab 10 MG TAB PO SCH ×3 (10:12→20:22)
[2018-07-25] MEDS: FUROSEMIDE 20 MG TABLET PO SCH (10:12)
[2018-07-25] MEDS: Spironolactone Tab 50 MG TAB PO SCH (10:12)
[2018-07-25] MEDS: POTASSIUM CHLORIDE 20 MEQ TAB PO SCH ×2 (10:12→20:22)
[2018-07-25] MEDS: SULFAMETHOXAZOLE/TRIMETHOPRIM 800/160 MG TABLET PO SCH (10:12)
[2018-07-25] MEDS: PENTOXIFYLLINE 400 MG PO SCH ×2 (10:13→20:41)
[2018-07-25 10:21] LABS: WBC MORPHOLOGY COMMENT SEE COMMENTS (NORM)
[2018-07-25 10:22] LABS: PLATELET MORPHOLOGY COMMENT SEE COMMENTS (NORM)
[2018-07-25 10:23] LABS: RBC MORPHOLOGY COMMENT SEE COMMENTS (NORM)
--- NOTE | 2018-07-25 11:35 | PTI REPORT ---
Thank you for the referral of Anusha Roland. She was seen on 07/24/18 for an inpatient evaluation secondary to generalized weakness. SUBJECTIVE: Chart review reveals the patient is a 68-year-old female with a history of alcoholism. The patient was found wandering [facility] in [place], [place] having defecated in the hallway. The ambulance was called and she was brought to the emergency room and subsequently admitted to the hospital. Upon speaking with the patient, the patient had difficulty recalling where she was from, where she lives, and even how long she has been in the hospital. Her original admit date was 07/21/2018. According to the nursing staff, she wad admitted under ICU; however, today she will be taken from the ICU room to a different room. The patient reports she is not quite sure why she is here or what she is supposed to be doing. PAST MEDICAL HISTORY: Past medical history can be found in the patient's medical record. OBJECTIVE FINDINGS: General observations: The patient was only accurate in identifying self and was inaccurate with time and place. Pain: The patient denied having any pain. Bed mobility: The patient was able to perform bed mobility with stand by assistance for safety awareness. Ambulation: The patient was able to ambulate 5 feet with gait belt and contact guard assistance to the wheelchair. Range of motion: The patient was able to perform active range of motion of upper and lower extremities within functional limits. Strength: The patient had strength of bilateral lower extremities at best of 3+/5; however, the therapist believes this was not due so much to a strength deficit as it was an understanding of what she was supposed to be doing. Balance: Standing balance was unable to be formally tested due to the patient's inability to follow one step commands. ASSESSMENT: Problem List: Confusion Decreased endurance Decreased strength Decreased safety awareness Physical Therapy Goals: To be met by discharge from inpatient: Patient will be able to ambulate up to 100 feet safely with appropriate assistive device for safety awareness. Patient will demonstrate at least 4-/5 strength of bilateral lower extremities for ambulatory, bed mobility, and transfer activities. Patient will demonstrate at least fair standing balance with appropriate assistive device to decrease fall risk. TREATMENT PLAN: Patient will be seen B.I.D during the week and one time per day over the weekend as an inpatient to address the above goals and objectives. INITIAL TREATMENT: Treatment today consisted of the initial evaluation followed by the patient performing bed mobility with stand by assistance and ambulating 5 feet to the wheelchair. She was brought downstairs to therapy where she performed therapeutic exercises and functional activities including arm bike x3 minutes forward and 3 minutes backward, seated red theraband resisted long arc quads, hamstring curls, seated clamshells, and isometric ball hip abduction, and red theraband resisted elbow flexion/extension and horizontal abduction. She performed three sit to stands and then ambulated an additional 15 feet with hand hold assist and gait belt. She was then taken back up to a different room, from room 309 to 316. She did relatively well with her exercises; however, our biggest problem was with accurate communication. The patient appeared confused and would constantly repeat herself, wondering where she was and what we were doing. YUE
[2018-07-25] MEDS ORDERED: LIDOCAINE HCL 2 % 10 ML JELLY URO-JECT TOPICAL PRN (12:39)
--- NOTE | 2018-07-25 15:46 | EKG ---
[address] [address] Measurements Intervals [place] Rate: 72 P: 58 WA: 181 QRS: 28 QRSD: 145 T: 25 QT: 440 QTc: 464 Interpretive Statements SINUS RHYTHM INDETERMINATE AXIS RIGHT BUNDLE BRANCH BLOCK [120+ ms QRS DURATION, UPRIGHT V1, 40+ ms S IN I/aVL/V4/V5/V6] Compared to ECG 07/21/2018 14:28:02 Indeterminate axis now present Left-axis deviation no longer present Electronically Signed On 07-26-18 08:24:26 MST by Julio Warren MD [email or web address]
--- NOTE | 2018-07-25 17:19 | OT.PROG ---
Progress Note Progress Note: Pt. was not seen by occupational therapy today due to pt. being on hold per nursing request. DANITA Palomino/Nuzhat
[2018-07-25] MEDS ORDERED: LACTULOSE 20 GM PACKET PO ONE (17:22)
[2018-07-26 08:18] LABS: BASOPHILS # (AUTO) 0.09 10*3/UL; BASOPHILS % (AUTO) 2.3 % (0-1); EOSINOPHILS % (AUTO) 2.6 % (0-8); Hematocrit [HCT] 30.8 % (37.0-47.0); Hemoglobin [HGB] 9.9 g/dL (12.0-16.0); LYMPHOCYTES # (AUTO) 1.51 10*3/uL; MEAN CORPUSCULAR HEMOGLOBIN 34.5 PG (27-31); MEAN CORPUSCULAR HGB CONC 32.1 g/dL (33-37); MEAN CORPUSCULAR VOLUME 107.3 FL (81-99); MONOCYTES # (AUTO) 0.57 10*3/UL (0.3-0.8); MONOCYTES % (AUTO) 14.7 % (5-15); NEUTROPHILS # (AUTO) 1.59 10*3/UL; NEUTROPHILS % (AUTO) 41.1 % (50-80); RED BLOOD COUNT 2.87 10^6/uL (4.20-5.40)
[2018-07-26 08:31] LABS: PLATELET MORPHOLOGY COMMENT SEE COMMENTS (NORM); RBC MORPHOLOGY COMMENT NORMAL MORPHOLOGY (NORM); WBC MORPHOLOGY COMMENT NORMAL MORPHOLOGY (NORM)
[2018-07-26] MEDS: LACTULOSE 20 GM PACKET PO SCH ×2 (08:51→20:59)
[2018-07-26] MEDS: PANTOPRAZOLE 40 MG TABLET PO SCH (08:52)
[2018-07-26] MEDS: MAGNESIUM OXIDE 400 MG TABLET PO SCH ×2 (08:52→17:21)
[2018-07-26] MEDS: POTASSIUM CHLORIDE 20 MEQ TAB PO SCH ×2 (08:54→20:59)
[2018-07-26] MEDS: SULFAMETHOXAZOLE/TRIMETHOPRIM 800/160 MG TABLET PO SCH (08:55)
[2018-07-26] MEDS: Propranolol Tab 10 MG TAB PO SCH ×3 (08:55→20:59)
[2018-07-26] MEDS: Spironolactone Tab 50 MG TAB PO SCH (08:55)
[2018-07-26] MEDS: FUROSEMIDE 20 MG TABLET PO SCH (08:56)
--- NOTE | 2018-07-26 09:19 | PDOC(PROG) ---
Interval History: Patient is much improved today she is coherent alert to time and place, denies any pain Objective : Data - Labs CBC and BMP: 07/26/18 08:14 07/25/18 05:00 Objective : Exam - General General Appearance: Cooperative - Head Head Exam: Normal Inspection, Normocephalic, Atraumatic - Respiratory Respiratory Exam: Clear to Auscultation - Bilaterally, Breathing Non Labored, Normal To Percussion, Normal to Percussion and Palpation - Cardiovascular Cardiovascular Exam: RRR, No Murmur, No Clicks, No Gallops, No Rubs, PMI Non- Displaced - GI/Abdominal GI/Abdominal Exam: Normal Bowel Sounds, Non Tender, Non Distended, Soft, No Masses, No Hepatomegaly, No Splenomegaly, No Organomegaly Assessment and Plan - Patient Problems (1) Hepatic encephalopathy Current Visit: Yes Status: Acute Comment: Improved today she is able to take her lactulose her ammonia level is down to 60 she is coherent and alert to person and place I did talk to the son Candido I updated him on the situation he will be coming to see her today and ramona mares if she can go home with him or once are still look for placement Code(s): K72.90 - Hepatic failure, unspecified without coma (2) Alcoholic cirrhosis of liver Current Visit: Yes Status: Chronic Code(s): K70.30 - Alcoholic cirrhosis of liver without ascites Qualifiers: Ascites presence: without ascites Qualified Code(s): K70.30 - Alcoholic cirrhosis of liver without ascites (3) Tobacco dependence Current Visit: Yes Status: Chronic Onset Date: 01/09/16 Code(s): F17.200 - Nicotine dependence, unspecified, uncomplicated (4) Esophageal varices Current Visit: Yes Status: Acute Code(s): I85.00 - Esophageal varices without bleeding Qualifiers: Esophageal varices type: secondary Esophageal varices bleeding: without bleeding Qualified Code(s): I85.10 - Secondary esophageal varices without bleeding
[2018-07-26 09:25] LABS: BLOOD UREA NITROGEN 13 mg/dL (7-22); BUN/CREATININE RATIO 18.57 (6-20); SERUM ALBUMIN 3.1 g/dL (3.5-4.8)
[2018-07-26] MEDS: PENTOXIFYLLINE 400 MG PO SCH ×2 (09:29→21:00)
--- NOTE | 2018-07-26 15:37 | PT.PROG ---
Progress Note Progress Note: S. Patient stated that she is tired and doesn't want to do a lot. O. Patient performed seated exercises in the form of; long arc quads, marches, heel toe raises, pillow squeezes, clam shells all x 10 bilaterally. Patient performed sit to stands x 5 and was left in chair with alarm and call light. A. Patient tolerated therapy fair, she did not want to ambulate at this time. Patient would continue to benefit from skilled therapy to increase balance, safety and endurance at this time. P. Continue POC.
--- NOTE | 2018-07-26 16:11 | OTI REPORT ---
Thank you for the referral of Anusha Roland. She was seen on 07/26/18 for an occupational therapy inpatient evaluation secondary to generalized weakness. SUBJECTIVE: The patient is a 68-year-old female who is being seen secondary to weakness and altered mental status with a lot of confusion. She was diagnosed with hepatic encephalopathy, cirrhosis of the liver, and esophageal variances. The patient lives in [place]. She was found having a lot of concerns at the [facility] and they called the ambulance to bring her in. The patient reports that she lives by herself. She perseverated on calling her sister and trying to get out of the hospital as soon as possible. She reports typically she does everything for herself including medication management, meals, and dressing self. PAST MEDICAL HISTORY: Past medical history can be found in the patient's medical record. OBJECTIVE FINDINGS: Bed mobility: The patient was able to come from supine to sit independently. Transfers: The patient was able to transfer from sit to stand with contact guard assist. The patient then transferred to the chair. Range of motion: The patient demonstrated upper extremity range of motion that was within functional limits for shoulder flexion, abduction, elbow flexion/extension, and wrist flexion/extension. Strength: The patient had difficulty following cues on how to perform strength testing. The patient demonstrated strength of 3+/5 for shoulder flexion, 3/5 for abduction, elbow flexion/extension was 3+/5, and elbow flexion/extension was 3+/5. Cognition: The patient was able to follow one step commands. The patient participated in the mini mental examination. She scored 16/30. She did not know the year, season, date, day, or month. She did know that she lived in [place] and she knew that she was in a hospital. The patient was able to state two out of the three words that she was supposed to remember after approximately one minute. This places the patient in the MODERATE cognitive impairment category. Ambulation/Activities of daily living: The patient was able to ambulate to the bathroom. She needed min to mod assist to keep her balance even though she said "don't hang onto me". She did have balance difficulties and leaned to the right. Once in the bathroom, she stopped sideways to the toilet and thought that she needed to sit down and needed cues to turn completely around to sit on the toilet. She needed cues to wipe self. At the sink, the patient needed verbal cues on how to take the lid off of her toothpaste as she did not know how to do this. She also needed cues to find the soap and the hand towels. The patient needed cues to turn on and off the water. ASSESSMENT: The patient is demonstrating a lot of confusion. She needed verbal cues to complete simple tasks. She is demonstrating moderate cognitive impairment. At this time it is not recommended that the patient live at home by herself. We will continue with further cognitive testing. Her balance is still a concern. Ambulating by herself is not safe at this time. Problem List: Decreased ability to complete ADLs Decreased functional balance Decreased cognition Short-Term Goals: To be met by discharge from inpatient: Patient will increase upper extremity strength to 4+/5 to complete all functional transfers. Patient will be alert and oriented x3. Patient will participate in CPT and MoCA assessments. Patient will be able to complete a toilet transfer and toilet hygiene independently. Long-Term Goals: To be met following discharge from inpatient: Patient will be placed in family's home or somewhere with 24-hour care upon discharge for safety. TREATMENT PLAN: Patient will be seen B.I.D during the week and one time per day over the weekend as an inpatient to address the above goals and objectives. INITIAL TREATMENT: Treatment today consisted of the initial evaluation followed by the patient transferring to her chair. The patient then transferred to the toilet and performed ADLs while standing at the sink. The patient then transferred back to her chair where she participated in the mini mental state examination. The patient received a phone call and the therapist was assessing how the patient used the phone. It was noted that she did not know how to open her flip phone. YUE
[2018-07-27] MEDS: MAGNESIUM OXIDE 400 MG TABLET PO SCH ×2 (08:00→17:49)
[2018-07-27] MEDS: PANTOPRAZOLE 40 MG TABLET PO SCH (08:01)
[2018-07-27] MEDS: SULFAMETHOXAZOLE/TRIMETHOPRIM 800/160 MG TABLET PO SCH (09:14)
[2018-07-27] MEDS: POTASSIUM CHLORIDE 20 MEQ TAB PO SCH ×2 (09:14→20:32)
[2018-07-27] MEDS: FUROSEMIDE 20 MG TABLET PO SCH (09:14)
[2018-07-27] MEDS: LACTULOSE 20 GM PACKET PO SCH ×2 (09:14→20:32)
[2018-07-27] MEDS: Propranolol Tab 10 MG TAB PO SCH ×3 (09:15→20:32)
[2018-07-27] MEDS: PENTOXIFYLLINE 400 MG PO SCH ×2 (09:15→20:38)
[2018-07-27] MEDS: Spironolactone Tab 50 MG TAB PO SCH (09:15)
--- NOTE | 2018-07-27 09:49 | PDOC(PROG) ---
Interval History: Patient is doing much better today she is walking the hallway she is not confused and is back to her baseline awaiting meeting between the son and social services assistant for placement denies chest pain nausea vomiting Objective : Data - Labs CBC and BMP: 07/26/18 08:14 07/26/18 08:14 Objective : Exam - General General Appearance: Cooperative - Respiratory Respiratory Exam: Clear to Auscultation - Bilaterally, Breathing Non Labored, Normal To Percussion, Normal to Percussion and Palpation - Cardiovascular Cardiovascular Exam: RRR, No Murmur, No Clicks, No Gallops, No Rubs, PMI Non- Displaced - GI/Abdominal GI/Abdominal Exam: Normal Bowel Sounds, Non Tender, Non Distended, Soft, No Masses, No Hepatomegaly, No Splenomegaly, No Organomegaly - Extremities Extremities Exam: No Clubbing Present, No Edema Present, No Cyanosis Present - Neurological Neurological Exam: Alert, Oriented x 3, No Facial Droop, Speech Intact / Clear, Moves All Extremities Equally Assessment and Plan - Patient Problems (1) Hepatic encephalopathy Current Visit: Yes Status: Acute Comment: Back to her baseline ammonia level is down patient is not confused discussed the case with GI nothing else to add for her cirrhosis continue current medication awaiting meeting between son and social services assistant to discuss placement possibilities of [facility] versus going home with him spoke to him last night he said he would come back today to speak with Gita Code(s): K72.90 - Hepatic failure, unspecified without coma (2) Alcoholic cirrhosis of liver Current Visit: Yes Status: Chronic Code(s): K70.30 - Alcoholic cirrhosis of liver without ascites Qualifiers: Ascites presence: without ascites Qualified Code(s): K70.30 - Alcoholic cirrhosis of liver without ascites (3) Tobacco dependence Current Visit: Yes Status: Chronic Onset Date: 01/09/16 Code(s): F17.200 - Nicotine dependence, unspecified, uncomplicated (4) Esophageal varices Current Visit: Yes Status: Acute Code(s): I85.00 - Esophageal varices without bleeding Qualifiers: Esophageal varices type: secondary Esophageal varices bleeding: without bleeding Qualified Code(s): I85.10 - Secondary esophageal varices without bleeding
--- NOTE | 2018-07-27 13:20 | OT.PROG ---
Progress Note Progress Note: S: pt agreed to complete a shower and ADL tasks. O: tx consisted of bed mobility from supine to EOB and MAX A for donning socks, showing task where pt needed MAX VCs for initiation of washing herself. pt was unable to properly sequence bathing tasks independently. pt was able to complete showing tasks with VCs each step. pt completed donning [facility] hospital gown with MOD A. pt complete toilet transfer independently with SBA for safety and catheter management. pt then completed hand washing, hair brushing and teeth brushing with VCs to complete tasks. pt transferred back into bed with MOD Vcs. A: pt stated multiple times that she needed to urinate but could not comprehend the information that she has a catheter and could urinate anytime. pt could not remember that she had washed her hair once already in the shower and wanted to wash it again. pt also stated that she lives with her sister. Family states that she lives alone. P: continue POC
--- NOTE | 2018-07-27 15:59 | PT.PROG ---
Progress Note Progress Note: S: Patient states she is hurting from her arthritis. She is willing to go for a walk, but doesn't want to exercise a lot this afternoon. O: Patient ambulated 150ft around the nurses station with MIAx2. A: Patient tolerated all activities well, and will benefit from continued skilled intervention to improve strength. P: Patient will be seen twice a day until discharge.
--- NOTE | 2018-07-27 17:20 | OT.PROG ---
Progress Note Progress Note: Occupational Therapy S: Pt. reports that she is feeling better today. Reports some aches in her legs. O: Pt. was seen at 1445 for skilled occupational therapy session with a focus on functional activities. Pt. demonstrated the ability to move in and out of bed with verbal cues only. She performed a toileting task with SBA and demonstrated the ability to don socks with verbal cues. Pt. also completed functional reaching activities while seated EOB 2 X 1 min. and 10 shoulder flexion repetitions. Following session, pt. was assisted back to bed with call light and alarms in place. A: Pt. was confused today and required frequent verbal cues to complete simple tasks. She was very concerned about her catheter and making a phone call. Pt. continues to benefit from skilled therapy to reach goals and objectives. P: Continue POC. DEMARCO Palomino
[2018-07-28 05:37] LABS: Hematocrit [HCT] 30.6 % (37.0-47.0); Hemoglobin [HGB] 10.3 g/dL (12.0-16.0); MEAN CORPUSCULAR HEMOGLOBIN 35.8 PG (27-31); MEAN CORPUSCULAR HGB CONC 33.7 g/dL (33-37); MEAN CORPUSCULAR VOLUME 106.3 FL (81-99); MEAN PLATELET VOLUME 9.8 FL (7.4-12.2); RED BLOOD COUNT 2.88 10^6/uL (4.20-5.40)
[2018-07-28 06:26] LABS: BAND NEUTROPHILS % 0 % (0-10); BASOPHILS % (MANUAL) 1 % (0-1); EOSINOPHILS % (MANUAL) 3 % (0-8); MONOCYTES % (MANUAL) 13 % (0-12); NEUTROPHILS % (MANUAL) 44 % (50-80); PLATELET MORPHOLOGY COMMENT NORMAL MORPHOLOGY (NORM); RBC MORPHOLOGY COMMENT SEE COMMENTS (NORM); WBC MORPHOLOGY COMMENT NORMAL MORPHOLOGY (NORM)
[2018-07-28 06:49] LABS: BLOOD UREA NITROGEN 15 mg/dL (7-22); BUN/CREATININE RATIO 18.75 (6-20); SERUM ALBUMIN 3.4 g/dL (3.5-4.8)
--- NOTE | 2018-07-28 08:56 | PT.PROG ---
Progress Note Progress Note: S: Pt participated with OT for showering activity prior to PT. O: Pt performed standing balance activity x 10 min with SBA x 1 for safety. A: Pt would only participate with standing balance activity as she stated that she just wanted to go home. P: Continue per POC.
--- NOTE | 2018-07-28 09:40 | PDOC(PROG) ---
Interval History: Patient still awake but a little bit more confused than yesterday her lactulose is up again today the son did talk with the bilingual social worker and the plan is for her to go to the group home in [place] referral was made Objective : Data - Labs CBC and BMP: 07/28/18 05:10 07/28/18 05:10 Objective : Exam - General General Appearance: Cooperative - Respiratory Respiratory Exam: Clear to Auscultation - Bilaterally, Breathing Non Labored, Normal To Percussion, Normal to Percussion and Palpation - Cardiovascular Cardiovascular Exam: RRR, No Murmur, No Clicks, No Gallops, No Rubs, PMI Non- Displaced - GI/Abdominal GI/Abdominal Exam: Normal Bowel Sounds, Non Tender, Non Distended, Soft, No Masses, No Hepatomegaly, No Splenomegaly, No Organomegaly Assessment and Plan - Patient Problems (1) Hepatic encephalopathy Current Visit: Yes Status: Acute Comment: This continues to wax and wane with fluctuations in her lactulose most likely secondary to end-stage liver disease. I did speak with the Dr. Manuel Gagnon in [place] he had nothing else to offer for this patient continue current medications with lactulose also INR was ordered which since of 1.5 range Code(s): K72.90 - Hepatic failure, unspecified without coma (2) Alcoholic cirrhosis of liver Current Visit: Yes Status: Chronic Code(s): K70.30 - Alcoholic cirrhosis of liver without ascites Qualifiers: Ascites presence: without ascites Qualified Code(s): K70.30 - Alcoholic cirrhosis of liver without ascites (3) Tobacco dependence Current Visit: Yes Status: Chronic Onset Date: 01/09/16 Code(s): F17.200 - Nicotine dependence, unspecified, uncomplicated (4) Esophageal varices Current Visit: Yes Status: Acute Code(s): I85.00 - Esophageal varices without bleeding Qualifiers: Esophageal varices type: secondary Esophageal varices bleeding: without bleeding Qualified Code(s): I85.10 - Secondary esophageal varices without bleeding
[2018-07-28] MEDS: MAGNESIUM OXIDE 400 MG TABLET PO SCH ×2 (10:22→20:11)
[2018-07-28] MEDS: SULFAMETHOXAZOLE/TRIMETHOPRIM 800/160 MG TABLET PO SCH (10:22)
[2018-07-28] MEDS: Spironolactone Tab 50 MG TAB PO SCH (10:22)
[2018-07-28] MEDS: LACTULOSE 20 GM PACKET PO SCH ×2 (10:23→20:10)
[2018-07-28] MEDS: PANTOPRAZOLE 40 MG TABLET PO SCH (10:23)
[2018-07-28] MEDS: FUROSEMIDE 20 MG TABLET PO SCH (10:23)
[2018-07-28] MEDS: Propranolol Tab 10 MG TAB PO SCH ×3 (10:23→20:11)
--- NOTE | 2018-07-28 11:10 | OT.PROG ---
Progress Note Progress Note: S: pt stated she was fine. O: tx consisted of teaching pt how to hold her fork and how to pickle water pump operator food with fork from her plate. pt needed MAX VCS to pickle water pump operator food first before placing fork in her mouth. pt needed verbal cues to initiate eating and feeding self. A: pt was unable to answer and questions with a correct response. pt would eb asked a question and she would respond with an answer that did not correlate with the question asked. Example: person:" would you like a newspaper?" Patient:" Yes I am!" pt also attempted to eat plastic syrup container. pt is unable to process what is food and what is not at this time. P: continue POC
[2018-07-28] MEDS: PENTOXIFYLLINE 400 MG PO SCH ×2 (11:30→20:13)
--- NOTE | 2018-07-28 11:44 | PT.PROG ---
Progress Note Progress Note: S. Patient agreed to do exercises. O. Patient performed seated exercises in the form of; long arc quads, marches, pillow squeezes, and ankle pumps Patient was left in chair with alarm and call light. A. Patient was very confused and was struggling to understand one step commands. Patient would continue to benefit from skilled therapy to increase strength, and safety at this time. P. Continue POC.
[2018-07-29] MEDS: SULFAMETHOXAZOLE/TRIMETHOPRIM 800/160 MG TABLET PO SCH ×2 (09:19→11:06)
[2018-07-29] MEDS: FUROSEMIDE 20 MG TABLET PO SCH ×2 (09:19→11:10)
[2018-07-29] MEDS: LACTULOSE 20 GM PACKET PO SCH ×5 (09:19→20:07)
[2018-07-29] MEDS: MAGNESIUM OXIDE 400 MG TABLET PO SCH ×3 (09:19→18:08)
[2018-07-29] MEDS: Propranolol Tab 10 MG TAB PO SCH ×4 (09:19→20:07)
[2018-07-29] MEDS: Spironolactone Tab 50 MG TAB PO SCH ×2 (09:19→11:11)
[2018-07-29] MEDS: PANTOPRAZOLE 40 MG TABLET PO SCH ×2 (09:20→11:11)
[2018-07-29] MEDS: PENTOXIFYLLINE 400 MG PO SCH ×2 (11:10→20:07)
--- NOTE | 2018-07-29 11:47 | PDOC(PROG) ---
Date of Service: 07/29/18 Time of Service: 12:00 Interval History: Subjective Patient is confused, I can't get any information from her. She cannot even tell me her name. She seen to be withdrawn. She pushed me at times and not cooperative with physical exam. Objective : Data - Labs CBC and BMP: 07/29/18 12:46 07/29/18 12:46 Objective : Exam - General Additional General Exam Details: Seemed to be sleepy but arousable. Has jaundice. - Head Head Exam: Normal Inspection - Eye Eye Exam: Scleral Icterus - ENT ENT Exam: Normal Exam - Neck Neck Exam: Normal Inspection - Respiratory Respiratory Exam: Clear to Auscultation - Bilaterally Additional Respiratory Exam Details: Not very cooperative during exam. - Cardiovascular Cardiovascular Exam: RRR - GI/Abdominal GI/Abdominal Exam: Normal Bowel Sounds, Non Tender, Non Distended, Soft, No Organomegaly - Rectal Rectal Exam: Deferred - External Exam: Deferred Exam: Deferred - Extremities Additional Extremities Exam Details: Doesn't follow commands so it's hard to assess her motor function but she moves her extremities spontaneously. - Neurological Additional Neurological Exam Details: Confused or anything that she stays either okay or or right. Even Her Name on about Day. - Psychiatric Psychiatric Exam: Flat Affect Assessment and Plan - Patient Problems (1) Hepatic encephalopathy Current Visit: Yes Status: Acute Comment: She is very confused. Ammonia level yesterday was 159, she refused to take her medication today. As I said she seems withdrawn and at times pushing me away when I try to listen to her chest. I did speak with her son well discussed the current condition. Did tell him we can try lactulose enema and see whether that's what work but there is no guarantee. He is okay to try. Code(s): K72.90 - Hepatic failure, unspecified without coma (2) Alcoholic cirrhosis of liver Current Visit: Yes Status: Chronic Comment: She is on pentoxifylline continue. She is on diuretics however she refused those. Doesn't seem to have significant ascites on exam although its limited because of her uncooperation. May hold the Lasix and Aldactone tomorrow. We'll watch her output as her intake seemed to be low today. Code(s): K70.30 - Alcoholic cirrhosis of liver without ascites Qualifiers: Ascites presence: without ascites Qualified Code(s): K70.30 - Alcoholic cirrhosis of liver without ascites (3) Esophageal varices Current Visit: Yes Status: Acute Comment: She is on beta aleksandra continue Code(s): I85.00 - Esophageal varices without bleeding Qualifiers: Esophageal varices type: secondary Esophageal varices bleeding: without bl eeding Qualified Code(s): I85.10 - Secondary esophageal varices without b leeding
[2018-07-29] MEDS ORDERED: LACTULOSE PO ONE (12:39)
[2018-07-29] MEDS ORDERED: [UNRECOGNIZED DRUG - MIXTURE] RECTAL ONE ×2 (13:00)
[2018-07-29 13:36] LABS: BASOPHILS # (AUTO) 0.05 10*3/UL; BASOPHILS % (AUTO) 1.3 % (0-1); EOSINOPHILS # (AUTO) 0.11 10*3/UL; Hemoglobin [HGB] 10.1 g/dL (12.0-16.0); LYMPHOCYTES # (AUTO) 1.55 10*3/uL; MEAN CORPUSCULAR HEMOGLOBIN 34.6 PG (27-31); MEAN CORPUSCULAR HGB CONC 32.6 g/dL (33-37); MEAN CORPUSCULAR VOLUME 106.2 FL (81-99); MEAN PLATELET VOLUME 9.8 FL (7.4-12.2); MONOCYTES # (AUTO) 0.48 10*3/UL (0.3-0.8); MONOCYTES % (AUTO) 12.9 % (5-15); NEUTROPHILS # (AUTO) 1.52 10*3/UL; NEUTROPHILS % (AUTO) 40.8 % (50-80); RED BLOOD COUNT 2.92 10^6/uL (4.20-5.40)
[2018-07-29 14:00] LABS: PLATELET MORPHOLOGY COMMENT SEE COMMENTS (NORM); RBC MORPHOLOGY COMMENT NORMAL MORPHOLOGY (NORM); WBC MORPHOLOGY COMMENT NORMAL MORPHOLOGY (NORM)
[2018-07-29 14:05] LABS: BLOOD UREA NITROGEN 17 mg/dL (7-22); BUN/CREATININE RATIO 21.25 (6-20); SERUM ALBUMIN 3.2 g/dL (3.5-4.8)
--- NOTE | 2018-07-29 16:01 | OT.PROG ---
Progress Note Progress Note: S: pt kept repeating herself today, "thats enough" and "quite a bit". O: pt was seen in her room today and was confused upon her name. She completed bed mobility with min A and a few tactile cues to leg to make her aware of her LE and to move them. She was given her socks to try on but was only able to grasp them but was unable to complete the task. she completed bed mobility back into her bed with min A. She was left in sidelying position in bed and alarm on. A: pt very confused today and could not complete ADL tasks even with cues. P: Continue PER poc.
--- NOTE | 2018-07-29 16:14 | PT.PROG ---
Progress Note Progress Note: Patient refused therapy this morning.
--- NOTE | 2018-07-29 16:21 | PT.PROG ---
Progress Note Progress Note: S. patient is very confused and agreed to do some exercises. O. Patient performed sit to stands x 5, and seated long arc quads and marches x 10 bilaterally. A. Patient became very confused and was unable to perform more exercises. Patient would continue to benefit from skilled therapy to increase strength, endurance and safety at this time. P. Continue POC.
[2018-07-29] MEDS: Sodium Chloride 0.9% 1,000 ML PRIMARY IV SCH (18:03)
[2018-07-30 05:11] LABS: BLOOD UREA NITROGEN 14 mg/dL (7-22); SERUM ALBUMIN 3.1 g/dL (3.5-4.8)
[2018-07-30] MEDS: Sodium Chloride 0.9% 1,000 ML PRIMARY IV SCH (05:28)
[2018-07-30] MEDS: MAGNESIUM OXIDE 400 MG TABLET PO SCH ×2 (06:57→16:37)
[2018-07-30] MEDS: PANTOPRAZOLE 40 MG TABLET PO SCH (06:57)
--- NOTE | 2018-07-30 07:45 | PDOC(PROG) ---
Date of Service: 07/30/18 Time of Service: 08:00 Interval History: Subjective Patient is awake sitting in the chair. Having her breakfast. She is slow to respond but better than yesterday. She is able to tell me her name. She couldn't tell me the day though. She couldn't tell me the month. She knows the president. She knows her date of . She is denying pain. Objective : Data - Labs CBC and BMP: 07/29/18 12:46 07/30/18 04:50 Objective : Exam - General General Appearance: No Acute Distress, Cooperative Additional General Exam Details: Jaundice noted - Head Head Exam: Normal Inspection - Eye Eye Exam: Scleral Icterus - ENT ENT Exam: Normal Exam - Neck Neck Exam: Normal Inspection - Respiratory Respiratory Exam: Clear to Auscultation - Bilaterally - Cardiovascular Cardiovascular Exam: RRR - GI/Abdominal GI/Abdominal Exam: Normal Bowel Sounds, Non Tender, Soft, No Organomegaly Additional GI/Abdominal Exam Details: Slight distention. Abdomen though soft nontender. - Rectal Rectal Exam: Deferred - External Exam: Deferred Exam: Deferred - Extremities Extremities Exam: Normal Inspection - Back Back Exam: Normal Inspection - Neurological Neurological Exam: CN II-XII Intact, No Facial Droop, Moves All Extremities Equally Additional Neurological Exam Details: Awake. Slow to respond. Cooperative though. She knew only the month. She knows her date of . - Psychiatric Psychiatric Exam: Flat Affect - Integumentary Integumentary Exam: Normal Color Assessment and Plan - Patient Problems (1) Hepatic encephalopathy Current Visit: Yes Status: Acute Comment: We increased the lactulose to 4 times a day. We'll see the number of her bowel movement today. May increase it more if she doesn't have the bowel movement. The ammonia level is lower today compared to yesterday. Code(s): K72.90 - Hepatic failure, unspecified without coma (2) Alcoholic cirrhosis of liver Current Visit: Yes Status: Chronic Comment: Continue lactulose, propranolol. I think will restart her Lasix and Aldactone tomorrow. We gave her some fluids because she wasn't drinking yesterday. Code(s): K70.30 - Alcoholic cirrhosis of liver without ascites Qualifiers: Ascites presence: without ascites Qualified Code(s): K70.30 - Alcoholic cirrhosis of liver without ascites (3) Esophageal varices Current Visit: Yes Status: Acute Comment: She is on propranolol continue. Code(s): I85.00 - Esophageal varices without bleeding Qualifiers: Esophageal varices type: secondary Esophageal varices bleeding: without bleeding Qualified Code(s): I85.10 - Secondary esophageal varices without bleeding
[2018-07-30] MEDS: LACTULOSE 20 GM PACKET PO SCH ×4 (08:25→20:29)
[2018-07-30] MEDS: Propranolol Tab 10 MG TAB PO SCH ×3 (08:26→20:29)
[2018-07-30] MEDS: SULFAMETHOXAZOLE/TRIMETHOPRIM 800/160 MG TABLET PO SCH (08:26)
[2018-07-30] MEDS: PENTOXIFYLLINE 400 MG PO SCH ×2 (08:34→20:29)
[2018-07-31 04:49] LABS: BLOOD UREA NITROGEN 8 mg/dL (7-22); BUN/CREATININE RATIO 13.33 (6-20); SERUM ALBUMIN 2.8 g/dL (3.5-4.8)
[2018-07-31] MEDS: MAGNESIUM OXIDE 400 MG TABLET PO SCH ×2 (07:00→16:59)
[2018-07-31] MEDS: PANTOPRAZOLE 40 MG TABLET PO SCH (07:00)
[2018-07-31] MEDS: FUROSEMIDE 20 MG TABLET PO SCH (07:42)
--- NOTE | 2018-07-31 08:00 | PDOC(PROG) ---
Date of Service: 07/31/18 Time of Service: 08:00 Interval History: Subjective Patient is a sitting in bed and does not appear in distress. She is more with it she knows the month and the year. She knows she is in the hospital in [place]. Objective : Data - Labs CBC and BMP: 07/29/18 12:46 07/31/18 04:20 Objective : Exam - General General Appearance: No Acute Distress, Cooperative - Head Head Exam: Normal Inspection - Eye Eye Exam: Scleral Icterus - ENT ENT Exam: Normal Exam - Neck Neck Exam: Normal Inspection - Respiratory Respiratory Exam: Clear to Auscultation - Bilaterally - Cardiovascular Cardiovascular Exam: RRR - GI/Abdominal GI/Abdominal Exam: Normal Bowel Sounds, Non Tender, Soft Additional GI/Abdominal Exam Details: Mild distention. I don't think there is significant ascites. - Rectal Rectal Exam: Deferred - External Exam: Deferred Exam: Deferred - Extremities Extremities Exam: Normal Inspection - Back Back Exam: Normal Inspection - Neurological Neurological Exam: Alert, CN II-XII Intact, No Facial Droop, Moves All Extr emities Equally Additional Neurological Exam Details: Does not know the day but no the month and the year knows that she is in the hospital. His speech is slow. Apparently this is the way she talk. - Psychiatric Psychiatric Exam: Flat Affect - Integumentary Integumentary Exam: Normal Color Assessment and Plan - Patient Problems (1) Hepatic encephalopathy Current Visit: Yes Status: Acute Comment: Seems to be much improved, she had 3 bowel movements yesterday. I think we'll keep the same dosage of lactulose. Her ammonia level is lower today. There is a plan for her to go to [facility] tomorrow. I think initially the plan was for her to go to but they don't have beds. I talked to her about where to go from here she was talking about going home. So I told her that the planner will be here tomorrow and then will talk a bout her discharge arrangement. She doesn't remember that that was discussed with her. Code(s): K72.90 - Hepatic failure, unspecified without coma (2) Alcoholic cirrhosis of liver Current Visit: Yes Status: Chronic Comment: We'll restart her Lasix and Aldactone today at a lower dosage though than before. Code(s): K70.30 - Alcoholic cirrhosis of liver without ascites Qualifiers: Ascites presence: without ascites Qualified Code(s): K70.30 - Alcoholic cirrhosis of liver without ascites (3) Esophageal varices Current Visit: Yes Status: Acute Comment: She is on propranolol. Code(s): I85.00 - Esophageal varices without bleeding Qualifiers: Esophageal varices type: secondary Esophageal varices bleeding: without bleeding Qualified Code(s): I85.10 - Secondary esophageal varices without bleeding
[2018-07-31] MEDS: Propranolol Tab 10 MG TAB PO SCH ×3 (09:46→20:26)
[2018-07-31] MEDS: Spironolactone Tab 50 MG TAB PO SCH (09:46)
[2018-07-31] MEDS: SULFAMETHOXAZOLE/TRIMETHOPRIM 800/160 MG TABLET PO SCH (09:46)
[2018-07-31] MEDS: LACTULOSE 20 GM PACKET PO SCH ×4 (09:46→20:26)
[2018-07-31] MEDS: PENTOXIFYLLINE 400 MG PO SCH ×2 (09:49→20:28)
--- NOTE | 2018-07-31 10:30 | PT.PROG ---
Progress Note Progress Note: S: pt. states she is feeling better. More alert and oriented today. O: Treatment consisted of functional activities: ambulated down to outpatient clinic where she performed leg bike x 5 minutes, sit to stands x 3, and ambulated back up to her room. She then required max to total assisted in the rest room for toileting and hygiene. Pt. placed in her recliner with call button and nursing notified. A: Pt. was more alert and willing to participate in exercises today. She was able to follow cues and complete tasks. Does require total assist in the bathroom. P: Continue per POC to increase strength and activity tolerance. Jess Lucero, PELT GRADER
[2018-08-01] MEDS: PANTOPRAZOLE 40 MG TABLET PO SCH (06:51)
[2018-08-01] MEDS: FUROSEMIDE 20 MG TABLET PO SCH (06:52)
[2018-08-01] MEDS: MAGNESIUM OXIDE 400 MG TABLET PO SCH (06:52)
--- NOTE | 2018-08-01 07:41 | PT.PROG ---
Progress Note Progress Note: S: Pt. states she is doing ok. O: Treatment consisted of functional activities: ambulated to therapy room with CGA, ube x 15 minutes. A: Pt. overall tolerated exercises well. She is more compliant to exercises and coming out of her room. P: Continue per POC to increase to strength and activity tolerance. Jess Lucero, DIRECTOR OF INDUSTRIAL RELATIONS
--- NOTE | 2018-08-01 08:20 | DCSUMMARY ---
Hospitalization Summary Admit Date: 07/21/2018 Discharge Date: 08/01/18 Hospital Course: Discharge diagnoses 1. Hepatic encephalopathy improved 2. Alcoholic liver disease 3. Ascites secondary to portal hypertension 4. History of esophageal varices status post banding 5. Thrombocytopenia likely secondary to portal hypertension Hospital course This is a 68 years old female with medical history significant for history of alcoholic liver disease causing cirrhosis and portal hypertension, she had a history of esophageal varices that needed banding and ascites who was brought to the hospital because she was wandering around the [facility] in [place] and apparently defecated in the hallway. She was the lethargic when they brought her here. A CT of the abdomen was negative for acute bleed. She was given lactulose and was admitted. She was admitted by Dr. Mccray please see his note. She was put on her usual medication in addition to lactulose. There was fluctuation in the level of mentation in addition to fluctuation in ammonia level. She needed some time and adjustment in the lactulose doses before her encephalopathy improved. I saw her later on during her hospital stay the day I saw her she was very confused. We thought about giving her a lactulose enema as she was refusing her medication. However she accepted to take lactulose po and we ended up increasing the dosage and giving it more frequent until she had multiple bowel movements. Her ammonia level decreased to last time was checked was 77 from 143. That's also correlated with improvement in her mental status. She worked with physical therapy. I also adjusted the dosage of the Lasix and Aldactone that she was on. She was on 150 mg of Aldactone I lowered it to 50 mg a day. Also lowered the dosage of Lasix from 60-20 mg a day. I think depending on her weight gain and assessment of her abdominal girth this can be increased if required. She need to have chemistry to check on the electrolytes and kidney function with her being a diuretic. The dosage of lactulose currently is 30 g 4 times a day. So far she is having about 3 or less than 3 bowel movements a day. If she has more than that then the dosage can be decreased to 3 times a day. Since she continued to be weak arrangements were made for her to go to [facility] for rehabilitation. This was discussed with her and she accepted to go there. Discharge instruction Diet regular Activity as started Medications Home Medications pantoprazole 40 mg tablet,delayed release 40 mg PO QDAY #90 tab 06/09/18 [Rx Confirmed 07/19/18] pentoxifylline ER 400 mg tablet,extended release 400 mg PO BID #60 tab 06/09/18 [Rx Confirmed 07/19/18] potassium chloride ER 20 mEq tablet,extended release 20 meq PO BID #60 tab 06/09/18 [Rx Confirmed 07/19/18] propranolol 10 mg tablet 10 mg PO TID #90 tab 06/09/18 [Rx Confirmed 07/19/18] sulfamethoxazole 800 mg-trimethoprim 160 mg tablet 1 tab PO QDAY #30 tab 06/09/18 [Rx Confirmed 07/19/18] furosemide 20 mg tablet 60 mg PO QDAY #90 tab 07/19/18 [Rx Confirmed 07/19/18] magnesium L-lactate ER 84 mg tablet,extended release 84 mg PO BID #180 tab 07/19/18 [Rx Confirmed 07/19/18] spironolactone 50 mg tablet 150 mg PO QDAY #90 tab 07/19/18 [Rx Confirmed 07/19/18] Lactulose Packet [Kristalose Packet] 20 gm PO BID #60 packet 07/22/18 [Rx] Follow-up with PCP 1-2 weeks Condition at discharge was stable for discharge Exam - Vitals Vital Signs: Vital Signs Temperature 98 F Temperature Source Temporal Artery Scan Pulse Rate [Apical] 74 Pulse Rate [Pulse Oximeter 64 Right] Pulse Rate 63 Respiratory Rate 18 Blood Pressure [Right Arm] 97/40 Blood Pressure [Left Arm] 98/43 Blood Pressure 99/55 Pulse Ox 94 Oxygen Flow Rate 95 Oxygen Delivery Method Room Air Height 5 ft 3 in Weight 143 lb 3.2 oz - General General Appearance: No Acute Distress - Head Head Exam: Normal Inspection - Eye Eye Exam: POSITIVE: Scleral Icterus - ENT ENT Exam: POSITIVE: Normal Exam - Neck Neck Exam: Normal Inspection - Respiratory Respiratory Exam: POSITIVE: Clear to Auscultation - Bilaterally - Cardiovascular Cardiovascular Exam: POSITIVE: RRR - GI/Abdominal GI/Abdominal Exam: POSITIVE: Normal Bowel Sounds, Non Tender, Non Distended, Soft, No Organomegaly - Rectal Rectal Exam: POSITIVE: Deferred - External Exam: POSITIVE: Deferred Exam: POSITIVE: Deferred - Extremities Extremities Exam: POSITIVE: Normal Inspection - Back Back Exam: POSITIVE: Normal Inspection - Neurological Neurological Exam: POSITIVE: Alert, No Facial Droop, Speech Intact / Clear, Moves All Extremities Equally Additional Neurological Exam Details: she knew the month and year, she knows where she is at. - Psychiatric Psychiatric Exam: POSITIVE: Normal Affect Patient Problems - Patient Problem List (1) Hepatic encephalopathy Current Visit: Yes Status: Acute Code(s): K72.90 - Hepatic failure, unspecified without coma Category: Medical (2) Alcoholic cirrhosis of liver Current Visit: Yes Status: Chronic Comment: Ms Roland is quite adamant about continuing to live independently in [place]. She also expresses again that she does not want to be hospitalized again. She has not been taking her medications correctly, in fact has no spironolactone with her today. I stressed the importance of taking all her medications, gave her another medication list, and she agreed to go hand picker the medicines today at [facility]. We also discussed that she did not keep her appointment with Dr Dexter and she agreed to see him. After the visit I talked to her sister Rosalinda Burr and she again expressed her concern about Candice living alone and so far from family. She also is going to be out of the area the end of August until November/December. We also discussed the referral to Dr Back and she is willing to transport her sister to that appointment. She reports that she has tried to set up medication boxes for Candice and she refuses to use them and wants to take the meds out of the bottles. Code(s): K70.30 - Alcoholic cirrhosis of liver without ascites Qualifiers: Ascites presence: without ascites Qualified Code(s): K70.30 - Alcoholic cirrhosis of liver without ascites Category: Medical (3) Esophageal varices Current Visit: Yes Status: Acute Code(s): I85.00 - Esophageal varices wi thout bleeding Qualifiers: Esophageal varices type: secondary Esophageal varices bleeding: without bleeding Qualified Code(s): I85.10 - Secondary esophageal varices without bleeding Category: Medical
[2018-08-01] MEDS: Spironolactone Tab 50 MG TAB PO SCH (10:15)
[2018-08-01] MEDS: SULFAMETHOXAZOLE/TRIMETHOPRIM 800/160 MG TABLET PO SCH (10:15)
[2018-08-01] MEDS: Propranolol Tab 10 MG TAB PO SCH (10:15)
[2018-08-01] MEDS: PENTOXIFYLLINE 400 MG PO SCH (10:16)
[2018-08-01] MEDS: LACTULOSE 20 GM PACKET PO SCH ×2 (10:16→13:01)
--- NOTE | 2018-08-01 14:08 | PT.PROG ---
Progress Note Progress Note: S. Patient stated that she would like to go to the therapy gym. O. Patient ambulated 175 feet to the therapy gym then used the nu-step x 12 minutes and ambulated 175 feet back to her room where she was left in bed with alarm and call light. A. Patient tolerated therapy well today she was able to ambulate to the therapy gym with stand by assistance. She continues to be confused and require frequent verbal cues to remember directions, She would benefit from 24 hour care at this time. P. Continue POC until Discharge.
--- NOTE | 2018-08-01 14:45 | OT.PROG ---
Progress Note Progress Note: pt refused skilled OT services today due to not wanting to do any more and was tired.
== END 2018-08-01 14:37 | DRG 433 ==
LOC: ER 14:10 → MED/SURG 16:40
PROVIDERS: ADMIT Family Medicine; ATTEND Family Medicine